=== PATIENT | female | born 1960 | race African-American/Black ===

== ENCOUNTER → 2017-01-14 | Outpatient (CLI) | payer OTHER ==
--- NOTE | 2017-01-14 14:23 | CR ---
EXAMINATION: Left foot HISTORY: Pain COMPARISON: 06/08/2016 TECHNIQUE: 2 views FINDINGS: There is no acute osseous abnormality, dislocation, or fracture identified. No mineralizat ion and joint spaces appear grossly preserved. Mild osteoarthritic changes are noted at the first MT P joint with mild oversight soft tissue swelling. Mild soft tissue swelling is noted along the later al aspect of the foot. Tiny calcaneal spurs noted. IMPRESSION: Mild degenerative changes without acute findings.
== END ==
LOC: MW.DI 09:12
DX: M79.672 Pain in left foot (principal)
CPT/HCPCS: 73620-26-LT; 73620-LT

== ENCOUNTER → 2017-01-18 | Outpatient (CLI) | payer OTHER ==
--- NOTE | 2017-01-18 17:17 | US ---
EXAMINATION: Transvaginal and transabdominal pelvic ultrasound HISTORY: Fibroid COMPARISON: None TECHNIQUE: Grayscale, color Doppler images obtained transvaginally and transabdominally. FINDINGS: The uterus measures 7 x 7.8 x 6.7 cm. There are several round heterogeneous masses noted w ithin the uterus measuring up to 4.2 cm consistent with uterine fibroids. Endometrial stripe thickne ss measures up to 8 mm. No free pelvic fluid identified. The ovaries are not identified. IMPRESSION: 1. Several uterine fibroids noted measuring up to 4.2 cm. 2. Endometrial stripe thickness measures 8 mm, mildly prominent for a postmenopausal state.
--- NOTE | 2017-01-18 17:20 | MY ---
EXAMINATION: Bilateral digital mammography utilizing CAD. HISTORY: Screening exam. Comparison is made to previous studies dated 01/14/2016, 03/11/2015. FINDINGS: Bilateral heterogeneously dense breast tissue. No suspicious calcifications, masses or a rchitectural distortions. No pathologic appearing lymph nodes, no abnormal skin thickening or nippl e inversion. CAD highlighted regions appear normal at this time. IMPRESSION: BI-RADS category I - negative mammogram. Continued screening according to ACR-ACS gu idelines suggested. THE FALSE-NEGATIVE RATE OF MAMMOGRAM IS APPROXIMATELY 10%. MANAGEMENT OF A PALPABLE ABNORMALITY MUST BE BASED UPON CLINICAL GROUNDS. SENSITIVITY FOR DETECTION OF ABNORMALITIES IN DENSE BREASTS IS LOW. NOTE: A letter will be sent to the patient regarding findings. [facility] -- CHIQUITA Dowd [phone] - FAX [phone]
== END ==
LOC: MW.MAM 13:31
PROVIDERS: ATTEND Nurse Practitioner Women's Health
DX: Z12.31 Encounter for screening mammogram for malignant neoplasm of breast (principal); M79.672 Pain in left foot; D25.9 Leiomyoma of uterus, unspecified
CPT/HCPCS: 73620; 76830; G0202

== ENCOUNTER → 2017-03-29 | Outpatient (CLI) | payer OTHER ==
[2017-03-29 10:34] LABS: CHLORIDE,CL 106 mmol/L (98-110); SODIUM,NA 141 mmol/L (136-146)
== END ==
LOC: MW.CHIM 09:25
PROVIDERS: ATTEND Internal Medicine
DX: D64.9 Anemia, unspecified (principal); I10 Essential (primary) hypertension; E78.00 Pure hypercholesterolemia, unspecified; E03.9 Hypothyroidism, unspecified
CPT/HCPCS: 36415; 80053; 80061; 83540; 84439; 84443; 85025

== ENCOUNTER 2017-10-08 19:32 | Emergency (ER) | payer OTHER ==
[2017-10-08] MEDS ORDERED: Ketorolac 30 MG/ML SDV IVPUSH ONE (20:02)
[2017-10-08] MEDS ORDERED: Sodium Chloride 0.9% 1,000 ML IV ONE (20:02)
--- NOTE | 2017-10-08 20:07 | EDM.PDOC ---
ED HPI GENERAL MEDICAL PROBLEM - General Chief Complaint: Headache Stated Complaint: PT HAS MIGRAINE Time Seen by Provider: 10/08/17 19:47 Source of Information: Reports: Patient History Limitations: Reports: No Limitations - History of Present Illness INITIAL COMMENTS - FREE TEXT/NARRATIVE: HISTORY AND PHYSICAL: History of present illness: Patient is a 57-year-old female who presents to the emergency room with complaints of a headache. She reports that she has had this pain on the top of her scalp and 3 days. She denies any recent head injury or trauma. Denies any photophobia or noise sensitivity. Dates she has a history of headaches, does not remember the last time she had one. Normally does not take any over-the- counter medications for these. Has not taken any medication at this time for this headache. Denies any ear pain or throat pain. Denies any chest pain, shortness of breath, fever or chills. Denies any abdominal pain, nausea, vomiting or diarrhea. Denies any changes or difficulty with bowel or bladder. * Visual acuity both eyes 20/20, left eye 20/25, right eye 20/20. Does not wear corrective lenses. Review of systems: As per history of present illness and below otherwise all systems reviewed and negative. Past medical history: As per history of present illness and as reviewed below otherwise noncontributory. Surgical history: As per history of present illness and as reviewed below otherwise noncontributory. Social history: No reported history of drug or alcohol abuse. Family history: As per history of present illness and as reviewed below otherwise noncontributory. Physical exam: Gen.: Well-developed and well-nourished 57-year-old -[place] female. Appears nontoxic. Alert and oriented. Appears in no acute distress. HEENT: Atraumatic, normocephalic, pupils reactive, negative for conjunctival pallor or scleral icterus, mucous membranes moist, throat clear, neck supple, nontender, trachea midline. Lungs: Clear to auscultation, breath sounds equal bilaterally, chest nontender. Heart: S1S2, regular, negative for clicks, rubs, or JVD. Abdomen: Soft, nondistended, nontender. Negative for masses or hepatosplenomegaly. Negative for costovertebral tenderness. Pelvis: Stable nontender. Genitourinary: Deferred. Rectal: Deferred. Extremities: Atraumatic, negative for cords or calf pain. Neurovascular unremarkable. Neuro: Awake, alert, oriented. Cranial nerves II through XII unremarkable. Cerebellum unremarkable. Motor and sensory unremarkable throughout. Exam nonfocal. We discussed the risks versus benefits of a head CT at this time. She decided she would like to try the IV fluid and Toradol and hold off on the head CT. 2039- patient states that the Toradol did not alleviate her head pain. At this time she is requesting that we do a head CT prior to her discharge. She declines any additional pain medication at this time. Diagnostics: Head CT Therapeutics: IV fluid, Toradol Impression: Headache Plan: 1. Your head CT was normal. Please take the rest of the day to rest in a quiet dark room. He may use Excedrin Migraine or Tylenol [id number] as needed. 2. As we discussed you should get a routine eye exam and establish care with a primary care provider for routine health maintenance. 3. Follow-up with the primary care provider in the next 1-2 days. Return to the ED as needed and as discussed. Definitive disposition and diagnosis as appropriate pending reevaluation and review of above. headach Pain Score (Numeric/FACES): 4 - Related Data Allergies Allergy/AdvReac Type Severity Reaction Status Date / Time No Known Allergies Allergy Verified 10/08/17 19:46 Home Meds: Home Meds Verapamil HCl [Verapamil ER] 180 mg PO DAILY 01/07/16 [History] atorvaSTATin [Lipitor] 40 mg PO BEDTIME 01/07/16 [History] Lisinopril 10 mg PO DAILY 09/22/16 [History] Albuterol [Ventolin HFA] 2 puff INH ASDIRECTED PRN 10/08/17 [History] Clopidogrel [Plavix] 75 mg PO DAILY 10/08/17 [History] Umeclidinium Brm/Vilanterol Tr [Anoro Ellipta 62.5-25 MCG] 1 puff INH DAILY [History] Past Medical History HEENT History: Reports: Allergic Rhinitis, Impaired Vision Other HEENT History: uses reading glasses, has upper and lower dentures Cardiovascular History: Reports: CAD, High Cholesterol, Hypertension Respiratory History: Reports: Asthma, COPD Gastrointestinal History: Reports: Chronic Constipation Genitourinary History: Reports: None 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: Musculoskeletal History: Reports: Back Pain, Chronic Neurological History: Reports: Migraines, TIA Other Neuro History: last TIA in 2003 Psychiatric History: Reports: Anxiety, Panic Attack Other Psychiatric History: not on meds Endocrine/Metabolic History: Reports: Hypothyroidism Hematologic History: Reports: Anemia Other Hematologic History: Hepatitis B Immunologic History: Reports: None Oncologic (Cancer) History: Reports: None Dermatologic History: Reports: Eczema Other Dermatologic History: behind knees and both thighs - Infectious Disease History Infectious Disease History: Reports: Chicken Pox, Mumps - Past Surgical History Head Surgeries/Procedures: Reports: None HEENT Surgical History: Reports: None Cardiovascular Surgical History: Reports: None Respiratory Surgical History: Reports: None GI Surgical History: Reports: None Female Surgical History: Reports: Section Endocrine Surgical History: Reports: Parathyroidectomy, Other (See Below) Neurological Surgical History: Reports: None Musculoskeletal Surgical History: Reports: None Oncologic Surgical History: Reports: None Dermatological Surgical History: Reports: None Social & Family History - Family History Family Medical History: Noncontributory - Tobacco Use Smoking Status *Q: Never Smoker Second Hand Smoke Exposure: No - Caffeine Use Caffeine Use: Reports: Coffee - Alcohol Use Days Per Week of Alcohol Use: 3 Number of Drinks Per Day: 2 Total Drinks Per Week: 6 - Recreational Drug Use Recreational Drug Use: No ED ROS GENERAL - Review of Systems Review Of Systems: See Below Constitutional: Denies: Fever, Chills, Weakness HEENT: Denies: Ear Pain, Sinus Problem, Throat Pain Cardiovascular: Denies: Chest Pain, Lightheadedness, Syncope Endocrine: Denies: Fatigue GI/Abdominal: Denies: Abdominal Pain, Diarrhea, Nausea, Vomiting Musculoskeletal: Denies: Muscle Pain Neurological: Denies: Confusion, Dizziness, Numbness, Tingling, Weakness, Gait Disturbance Psychiatric: Denies: Anxiety - Physical Exam Exam: See Below (See dictation) Course - Vital Signs Last Recorded V/S: Last Vital Signs Temp 36.1 C 10/08/17 19:43 Pulse 72 10/08/17 21:15 Resp 18 10/08/17 21:15 BP 116/85 10/08/17 21:15 Pulse Ox 97 10/08/17 21:15 - Orders/Labs/Meds Orders: Active Orders 24 hr Category Date Time Status Head wo Cont [CT] Stat Exams 10/08/17 20:44 Taken Meds: Medications Discontinued Medications Generic Name Dose Route Start Last Admin Trade Name Duane PRN Reason Stop Dose Admin Sodium Chloride 1,000 mls @ 999 mls/hr 10/08/17 20:02 10/08/17 20:15 Normal Saline IV 10/08/17 21:02 999 mls/hr STAT ONE Administration Ketorolac Tromethamine 30 mg 10/08/17 20:02 10/08/17 20:19 Toradol IVPUSH 10/08/17 20:03 30 mg ONETIME ONE Administration Departure - Departure Time of Disposition: 21:22 Disposition: Home, Self-Care 01 Clinical Impression: Headache Qualifiers: Headache type: unspecified Headache chronicity pattern: episodic headache Intractability: not intractable Qualified Code(s): R51 - Headache - Discharge Information Referrals: PCP,None [Primary Care Provider] - Forms: ED Department Discharge Additional Instructions: My general discharge The following information is given to patients seen in the emergency department who are being discharged to home. This information is to outline your options for follow-up care. We provide all patients seen in our emergency department with a follow-up referral. The need for follow-up, as well as the timing and circumstances, are variable depending upon the specifics of your emergency department visit. If you don't have a primary care physician on staff, we will provide you with a referral. We always advise you to contact your personal physician following an emergency department visit to inform them of the circumstance of the visit and for follow-up with them and/or the need for any referrals to a consulting specialist. The emergency department will also refer you to a specialist when appropriate. This referral assures that you have the opportunity for follow-up care with a specialist. All of these measure are taken in an effort to provide you with optimal care, which includes your follow-up. Under all circumstances we always encourage you to contact your private physician who remains a resource for coordinating your care. When calling for follow-up care, please make the office aware that this follow-up is from your recent emergency room visit. If for any reason you are refused follow-up, please contact the [facility] Emergency Department at and asked to speak to the emergency department charge nurse. [facility] [address] [place], [place] [address], [place] [address] [facility] [address] [place] [address] was normal. Please take the rest of the day to rest in a quiet dark room. He may use Excedrin Migraine or Tylenol [id number] as needed. 2. As we discussed you should get a routine eye exam and establish care with a primary care provider for routine health maintenance. 3. Follow-up with the primary care provider in the next 1-2 days. Return to the ED as needed and as discussed. - My Orders Last 24 Hours: My Active Orders 10/08/17 20:44 Head wo Cont [CT] Stat - Assessment/Plan Last 24 Hours: My Active Orders 10/08/17 20:44 Head wo Cont [CT] Stat
[2017-10-08 22:39] VITALS: BP 118/74
--- NOTE | 2017-10-10 15:10 | CT ---
EXAM DATE: 10/08/17 PATIENT'S AGE: 57 Patient: MARIE GOMEZ Facility: [place], [place] Site . Site : 1960 Study: CT Head [id number] 9:05:48 PM Ordering Physician: Doctor Scott Final Report: INDICATION: Headache. Technique: CT head without IV contrast. Comparison: CT head 09/22/2016. Findings: Small amounts of fluid and opacification of inferior left mastoid air cells consistent with inflammation or edema. Minimal cerebral atrophy. No intracranial hemorrhage, edema, or mass effect. Remainder negative. Impression: 1. No acute intracranial disease. 2. Fluid in opacification of inferior left mastoid air cells unchanged and likely related to inflammation or edema which may be chronic or ongoing. Please note that all CT scans at this facility use dose modulation, iterative reconstruction, and/or weight-based dosing when appropriate to reduce radiation dose to as low as reasonably achievable. Dictated by Live Rosas MD @ Oct 08 2017 9:14PM (Electronic Signature) Report Signed by Proxy. MTDD
== END 2017-10-08 21:50 | disposition home or self-care (01) ==
LOC: MW.ED 19:32
DX: R51 Headache (principal); I10 Essential (primary) hypertension; Z79.899 Other long term (current) drug therapy
CPT/HCPCS: 70450; 96361; 96374; 99284; J1885; J7040; 99282

== ENCOUNTER 2019-06-27 07:51 | Emergency (ER) | payer OTHER ==
--- NOTE | 2019-06-27 08:16 | EDM.PDOC ---
ED HPI GENERAL MEDICAL PROBLEM - General Chief Complaint: Back Pain or Injury Stated Complaint: BACK PAIN Time Seen by Provider: 06/27/19 08:13 Source of Information: Reports: Patient History Limitations: Reports: No Limitations - History of Present Illness INITIAL COMMENTS - FREE TEXT/NARRATIVE: History of present illness: []Patient has had diffuse low back pain for the last 2 days. She denies any trauma or urinary discomfort, incontinence, numbness or tingling, radiation of pain, fevers, vomiting or diarrhea. Review of systems: As per history of present illness and below otherwise all systems reviewed and negative. Past medical history: As per history of present illness and as reviewed below otherwise noncontributory. Surgical history: As per history of present illness and as reviewed below otherwise noncontributory. Social history: No reported history of drug or alcohol abuse. Family history: As per history of present illness and as reviewed below otherwise noncontributory. Physical exam: General: Well developed, well nourished in NAD HEENT: Atraumatic, normocephalic, pupils reactive, negative for conjunctival pallor or scleral icterus, mucous membranes moist, throat clear, neck supple, nontender, trachea midline. Lungs: Clear to auscultation, breath sounds equal bilaterally, chest nontender. Heart: S1S2, regular, negative for clicks, rubs, or JVD. Abdomen: NABS, Soft, nondistended, nontender. Negative for masses or hepatosplenomegaly. Negative for costovertebral tenderness. Low back tenderness over muscle there is no vertebral point tenderness is noted. Pelvis: Stable nontender. Genitourinary: Deferred. Rectal: Deferred. Extremities: Atraumatic, negative for cords or calf pain. Neurovascular unremarkable. Neuro: Awake, alert, oriented. Cranial nerves II through XII unremarkable. Cerebellum unremarkable. Motor and sensory unremarkable throughout. Exam nonfocal. Straight leg raise negative, raises great toes Skin:warm and dry Diagnostics: None Therapeutics: None ED Course: Stable Impression: Low back pain Prescriptions: Tramadol, Flexeril Plan: Take meds as directed, follow up with your primary care physician, return to ER if symptoms worsen or change. Definitive disposition and diagnosis as appropriate pending reevaluation and review of above. Lower Back Pain Score (Numeric/FACES): 10 - Related Data Allergies Allergy/AdvReac Type Severity Reaction Status Date / Time No Known Allergies Allergy Verified 06/27/19 07:59 Home Meds: Home Meds Verapamil HCl [Verapamil ER] 180 mg PO DAILY 01/07/16 [History] atorvaSTATin [Lipitor] 40 mg PO BEDTIME 01/07/16 [History] Lisinopril 10 mg PO DAILY 09/22/16 [History] Albuterol [Ventolin HFA] 2 puff INH ASDIRECTED PRN 10/08/17 [History] Clopidogrel [Plavix] 75 mg PO DAILY 10/08/17 [History] Umeclidinium Brm/Vilanterol Tr [Anoro Ellipta 62.5-25 MCG] 1 puff INH DAILY [History] Cyclobenzaprine [Flexeril] 10 mg PO BID PRN #12 tab 06/27/19 [Rx] traMADol HCl [Tramadol HCl] 50 mg PO Q6H PRN #16 tablet 06/27/19 [Rx] Past Medical History HEENT History: Reports: Allergic Rhinitis, Impaired Vision Other HEENT History: uses reading glasses, has upper and lower dentures Cardiovascular History: Reports: CAD, High Cholesterol, Hypertension Respiratory History: Reports: Asthma, COPD Gastrointestinal History: Reports: Chronic Constipation Genitourinary History: Reports: None 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: Musculoskeletal History: Reports: Back Pain, Chronic Neurological History: Reports: Migraines, TIA Other Neuro History: last TIA in 2003 Psychiatric History: Reports: Anxiety, Panic Attack Other Psychiatric History: not on meds Endocrine/Metabolic History: Reports: Hypothyroidism Hematologic History: Reports: Anemia Other Hematologic History: Hepatitis B Immunologic History: Reports: None Oncologic (Cancer) History: Reports: None Dermatologic History: Reports: Eczema Other Dermatologic History: behind knees and both thighs - Infectious Disease History Infectious Disease History: Reports: Chicken Pox, Hepatitis B - Past Surgical History Head Surgeries/Procedures: Reports: None HEENT Surgical History: Reports: None Cardiovascular Surgical History: Reports: None Respiratory Surgical History: Reports: None GI Surgical History: Reports: None Female Surgical History: Reports: Section Endocrine Surgical History: Reports: Parathyroidectomy, Other (See Below) Neurological Surgical History: Reports: None Musculoskeletal Surgical History: Reports: None Oncologic Surgical History: Reports: None Dermatological Surgical History: Reports: None Social & Family History - Family History Family Medical History: Noncontributory - Tobacco Use Smoking Status *Q: Former Smoker Used Tobacco, but Quit: Yes Month/Year Tobacco Last Used: 2003 - Caffeine Use Caffeine Use: Reports: Coffee - Recreational Drug Use Recreational Drug Use: No ED ROS GENERAL - Review of Systems Review Of Systems: See Below ED EXAM,LOWER BACK PAIN/INJURY - Physical Exam Exam: See Below Course - Vital Signs Last Recorded V/S: Last Vital Signs Temp 96.8 F 06/27/19 07:57 Pulse 68 06/27/19 07:57 Resp 16 06/27/19 07:57 BP 128/87 06/27/19 07:57 Pulse Ox 98 06/27/19 07:57 Departure - Departure Time of Disposition: 08:15 Disposition: Home, Self-Care 01 Condition: Good Clinical Impression: Low back pain Qualifiers: Chronicity: acute Back pain laterality: bilateral Sciatica presence: without sciatica Qualified Code(s): M54.5 - Low back pain - Discharge Information *PRESCRIPTION DRUG MONITORING PROGRAM REVIEWED*: No *COPY OF PRESCRIPTION DRUG MONITORING REPORT IN PATIENT ESTRELLITA: No Prescriptions: Cyclobenzaprine [Flexeril] 10 mg PO BID PRN #12 tab PRN Reason: Pain traMADol HCl [Tramadol HCl] 50 mg PO Q6H PRN #16 tablet PRN Reason: Pain Referrals: Mario Cortez MD [Primary Care Provider] - Additional Instructions: The following information is given to patients seen in the emergency department who are being discharged to home. This information is to outline your options for follow-up care. We provide all patients seen in our emergency department with a follow-up referral. The need for follow-up, as well as the timing and circumstances, are variable depending upon the specifics of your emergency department visit. If you don't have a primary care physician on staff, we will provide you with a referral. We always advise you to contact your personal physician following an emergency department visit to inform them of the circumstance of the visit and for follow-up with them and/or the need for any referrals to a consulting specialist. The emergency department will also refer you to a specialist when appropriate. This referral assures that you have the opportunity for follow-up care with a specialist. All of these measure are taken in an effort to provide you with optimal care, which includes your follow-up. Under all circumstances we always encourage you to contact your private physician who remains a resource for coordinating your care. When calling for follow-up care, please make the office aware that this follow-up is from your recent emergency room visit. If for any reason you are refused follow-up, please contact the [facility] Emergency Department at and asked to speak to the emergency department charge nurse. Take meds as directed, follow up with your primary care physician, return to ER if symptoms worsen or change. [facility] [address] [place] [id number]
[2019-06-27 08:20] VITALS: BP 129/68; PULSE 69
== END 2019-06-27 08:23 | disposition home or self-care (01) ==
LOC: MW.ED 07:51
DX: M54.5 Low back pain (principal); I10 Essential (primary) hypertension; I25.10 Atherosclerotic heart disease of native coronary artery without angina pectoris; J44.9 Chronic obstructive pulmonary disease, unspecified; Z86.73 Personal history of transient ischemic attack (TIA), and cerebral infarction without residual deficits; Z87.891 Personal history of nicotine dependence
CPT/HCPCS: 99282; 99283

== ENCOUNTER 2019-07-21 11:39 | Emergency (ER) | payer OTHER ==
[2019-07-21] MEDS ORDERED: Sodium Chloride 0.9% 2.5 ML Syringe FLUSH PRN (11:42)
[2019-07-21] MEDS ORDERED: Sodium Chloride 0.9% 10 ML Syringe FLUSH PRN (11:42)
[2019-07-21] MEDS ORDERED: Sodium Chloride 0.9% 1,000 ML IV ONE (11:42)
--- NOTE | 2019-07-21 11:45 | EDM.PDOC ---
ED HPI GENERAL MEDICAL PROBLEM - General Stated Complaint: DIZZINESS Time Seen by Provider: 07/21/19 11:40 Source of Information: Reports: Patient History Limitations: Reports: No Limitations - History of Present Illness INITIAL COMMENTS - FREE TEXT/NARRATIVE: HISTORY AND PHYSICAL: History of present illness: Patient is a 58-year-old female who presents to the emergency room with complaints of dizziness 1 week. She states for the last one week she has several episodes per day where she feels the room is spinning. Reports that nothing brings these episodes on although she does find relief with sitting and not moving her head. She is able to cause dizziness with rapid head movement. Denies any recent head injury, trauma or falls. Patient denies any fever, chills , headache, change in vision, syncope or near syncope. Denies any chest pain, back pain, shortness of breath or cough. Denies any abdominal pain, nausea, vomiting, diarrhea, constipation or dysuria. Has not noted any blood in urine or stool. Patient has been eating and drinking appropriately. Review of systems: As per history of present illness and below otherwise all systems reviewed and negative. Past medical history: As per history of present illness and as reviewed below otherwise noncontributory. Surgical history: As per history of present illness and as reviewed below otherwise noncontributory. Social history: See social history for further information Family history: As per history of present illness and as reviewed below otherwise noncontributory. Physical exam: General: Well-developed and well-nourished 58-year-old female. Alert and oriented. Nontoxic appearing and in no acute distress. HEENT: Atraumatic, normocephalic, pupils equal and reactive bilaterally, negative for conjunctival pallor or scleral icterus, mucous membranes moist, TMs normal bilaterally, throat clear, neck supple, nontender, trachea midline. No drooling or trismus noted. No meningeal signs. No hot potato voice noted. Lungs: Clear to auscultation, breath sounds equal bilaterally, chest nontender. Heart: S1S2, regular rate and rhythm without overt murmur Abdomen: Soft, nondistended, nontender. Negative for masses or hepatosplenomegaly. Negative for costovertebral tenderness. Skin: Intact, warm, dry. No lesions or rashes noted. Extremities: Atraumatic, moves all extremities per self without difficulty or deficits, negative for cords or calf pain. Neurovascular unremarkable. Neuro: Awake, alert, oriented. Cranial nerves II through XII unremarkable. Cerebellum unremarkable. Motor and sensory unremarkable throughout. Exam nonfocal. Notes: Negative Head CT. Lab work is unremarkable. Diagnostics were shared and discussed with patient. She states she does feel improvement and would like to be discharged. We discussed using [id number] meclizine and I will prescribe 3 patches of the scopolamine if the meclizine does not help. We also discussed physical therapy as a modality to help improve symptoms. Supportive care measures were reviewed and discussed. Voices understanding and is agreeable to plan of care. Denies any further questions or concerns at this time. Diagnostics: CBC, CMP, Troponin, EKG, Chest Xray, Orthostatic Vital Signs, UA, Head CT Therapeutics: Normal Saline, Meclizine Prescription: Sopalamine Patch (#3) Impression: Vertigo Plan: 1. Increase your oral fluids. Change positions slowly (from sitting to standing) 2. You can use [id number] meclizine as we discussed. If that medication does not work have prescribed scopolamine patches. This medication can be applied behind the ear and be changed every 72 hours (3 days). He also have the option of following up with physical therapy as they do perform some exercises/ maneuvers that may help with the dizziness. 3. Please follow-up with your primary care provider as we discussed. Return to the ED as needed and as discussed. Definitive disposition and diagnosis as appropriate pending reevaluation and review of above. - Related Data Allergies Allergy/AdvReac Type Severity Reaction Status Date / Time No Known Allergies Allergy Verified 06/27/19 07:59 Home Meds: Home Meds Verapamil HCl [Verapamil ER] 180 mg PO DAILY 01/07/16 [History] atorvaSTATin [Lipitor] 40 mg PO BEDTIME 01/07/16 [History] Lisinopril 10 mg PO DAILY 09/22/16 [History] Albuterol [Ventolin HFA] 2 puff INH ASDIRECTED PRN 10/08/17 [History] Clopidogrel [Plavix] 75 mg PO DAILY 10/08/17 [History] Umeclidinium Brm/Vilanterol Tr [Anoro Ellipta 62.5-25 MCG] 1 puff INH DAILY [History] Cyclobenzaprine [Flexeril] 10 mg PO BID PRN #12 tab 06/27/19 [Rx] traMADol HCl [Tramadol HCl] 50 mg PO Q6H PRN #16 tablet 06/27/19 [Rx] Scopolamine [Transderm-Scop] 1 each TD ASDIRECTED PRN #3 patch 07/21/19 [Rx] Past Medical History HEENT History: Reports: Allergic Rhinitis, Impaired Vision Other HEENT History: uses reading glasses, has upper and lower dentures Cardiovascular History: Reports: CAD, High Cholesterol, Hypertension Respiratory History: Reports: Asthma, COPD Gastrointestinal History: Reports: Chronic Constipation Genitourinary History: Reports: None [employer] SUPER[employer]OR History: Reports: Musculoskeletal History: Reports: Back Pain, Chronic Neurological History: Reports: Migraines, TIA Other Neuro History: last TIA in 2003 Psychiatric History: Reports: Anxiety, Panic Attack Other Psychiatric History: not on meds Endocrine/Metabolic History: Reports: Hypothyroidism Hematologic History: Reports: Anemia Other Hematologic History: Hepatitis B Immunologic History: Reports: None Oncologic (Cancer) History: Reports: None Dermatologic History: Reports: Eczema Other Dermatologic History: behind knees and both thighs - Infectious Disease History Infectious Disease History: Reports: Chicken Pox, Hepatitis B - Past Surgical History Head Surgeries/Procedures: Reports: None HEENT Surgical History: Reports: None Cardiovascular Surgical History: Reports: None Respiratory Surgical History: Reports: None GI Surgical History: Reports: None Female Surgical History: Reports: Section Endocrine Surgical History: Reports: Parathyroidectomy, Other (See Below) Neurological Surgical History: Reports: None Musculoskeletal Surgical History: Reports: None Oncologic Surgical History: Reports: None Dermatological Surgical History: Reports: None Social & Family History - Family History Family Medical History: Noncontributory - Caffeine Use Caffeine Use: Reports: Coffee ED ROS GENERAL - Review of Systems Review Of Systems: ROS reveals no pertinent complaints other than HPI. ED EXAM, GENERAL - Physical Exam Exam: See Below (See dictation) Course - Vital Signs Last Recorded V/S: Last Vital Signs Temp 98.2 F 07/21/19 11:49 Pulse 69 07/21/19 12:55 Resp 18 07/21/19 12:55 BP 164/99 H 07/21/19 12:55 Pulse Ox 99 07/21/19 12:55 - Orders/Labs/Meds Orders: Active Orders 24 hr Category Date Time Status EKG Documentation Completion [RC] STAT Care 07/21/19 11:42 Active Saline Lock Insert [OM.PC] Stat Oth 07/21/19 11:42 Ordered Labs: Laboratory Tests 07/21/19 07/21/19 07/21/19 Range/Units 11:52 11:52 12:20 WBC 3.35 L (4.0-11.0) K/uL RBC 4.85 (4.30-5.90) M/uL Hgb 12.9 (12.0-16.0) g/dL Hct 39.6 (36.0-46.0) % MCV 81.6 (80.0-98.0) fL MCH 26.6 L (27.0-32.0) pg MCHC 32.6 (31.0-37.0) g/dL RDW Std Deviation 38.6 (28.0-62.0) fl RDW Coeff of [place] 13 (11.0-15.0) % Plt Count 235 (150-400) K/uL MPV 9.00 (7.40-12.00) fL Neut % (Auto) 37.5 L (48.0-80.0) % Lymph % (Auto) 46.3 H (16.0-40.0) % [place] % (Auto) 9.6 (0.0-15.0) % Eos % (Auto) 6.0 (0.0-7.0) % Baso % (Auto) 0.6 (0.0-1.5) % Neut # (Auto) 1.3 L (1.4-5.7) K/uL Lymph # (Auto) 1.6 (0.6-2.4) K/uL [place] # (Auto) 0.3 (0.0-0.8) K/uL Eos # (Auto) 0.2 (0.0-0.7) K/uL Baso # (Auto) 0.0 (0.0-0.1) K/uL Nucleated RBC % 0.0 /100WBC Nucleated RBCs # 0 K/uL Sodium 139 (136-145) mmol/L Potassium 4.1 (3.5-5.1) mmol/L Chloride 103 (98-107) mmol/L Carbon Dioxide 26.5 (21.0-32.0) mmol/L BUN 28 H (7.0-18.0) mg/dL Creatinine 1.2 H (0.6-1.0) mg/dL Est Cr Clr Drug Dosing 44.13 mL/min Estimated GFR (MDRD) 55.9 ml/min Glucose 96 (74-106) mg/dL Calcium 9.4 (8.5-10.1) mg/dL Total Bilirubin 0.4 (0.2-1.0) mg/dL AST 20 (15-37) IU/L ALT 26 (14-63) IU/L Alkaline Phosphatase 71 (46-116) U/L Troponin I < 0.050 (0.000-0.056) ng/mL Total Protein 7.5 (6.4-8.2) g/dL Albumin 3.7 (3.4-5.0) g/dL Globulin 3.8 (2.6-4.0) g/dL Albumin/Globulin Ratio 1.0 (0.9-1.6) Urine Color YELLOW Urine Appearance CLEAR Urine pH 7.0 (5.0-8.0) Ur Specific [place] 1.015 (1.001-1.035) Urine Protein NEGATIVE (NEGATIVE) mg/dL Urine Glucose (UA) NEGATIVE (NEGATIVE) mg/dL Urine Ketones NEGATIVE (NEGATIVE) mg/dL Urine Occult Blood NEGATIVE (NEGATIVE) Urine Nitrite NEGATIVE (NEGATIVE) Urine Bilirubin NEGATIVE (NEGATIVE) Urine Urobilinogen 0.2 (<2.0) EU/dL Ur Leukocyte Esterase NEGATIVE (NEGATIVE) Meds: Medications Discontinued Medications Generic Name Dose Route Start Last Admin Trade Name Freq PRN Reason Stop Dose Admin Sodium Chloride 1,000 mls @ 999 mls/hr 07/21/19 11:42 07/21/19 12:01 Normal Saline IV 07/21/19 12:42 999 mls/hr STAT ONE Administration Meclizine HCl 25 mg 07/21/19 12:27 07/21/19 12:40 Antivert PO 07/21/19 12:28 25 mg ONETIME ONE Administration Sodium Chloride 10 ml 07/21/19 11:42 Saline Flush FLUSH ASDIRECTED PRN Keep Vein Open Sodium Chloride 2.5 ml 07/21/19 11:42 Saline Flush FLUSH ASDIRECTED PRN Keep Vein Open Departure - Departure Time of Disposition: 12:47 Disposition: Home, Self-Care 01 Clinical Impression: Vertigo - Discharge Information Prescriptions: Scopolamine [Transderm-Scop] 1 each TD ASDIRECTED PRN #3 patch PRN Reason: Other Instructions: Vertigo, [id number] Referrals: Mario Cortez MD [Primary Care Provider] - Forms: ED Department Discharge Additional Instructions: The following information is given to patients seen in the emergency department who are being discharged to home. This information is to outline your options for follow-up care. We provide all patients seen in our emergency department with a follow-up referral. The need for follow-up, as well as the timing and circumstances, are variable depending upon the specifics of your emergency department visit. If you don't have a primary care physician on staff, we will provide you with a referral. We always advise you to contact your personal physician following an emergency department visit to inform them of the circumstance of the visit and for follow-up with them and/or the need for any referrals to a consulting specialist. The emergency department will also refer you to a specialist when appropriate. This referral assures that you have the opportunity for follow-up care with a specialist. All of these measure are taken in an effort to provide you with optimal care, which includes your follow-up. Under all circumstances we always encourage you to contact your private physician who remains a resource for coordinating your care. When calling for follow-up care, please make the office aware that this follow-up is from your recent emergency room visit. If for any reason you are refused follow-up, please contact the [facility] Emergency Department at and asked to speak to the emergency department charge nurse. [facility] [address] [place] [id number] [address] [address] 1. Increase your oral fluids. Change positions slowly (from sitting to standing) 2. You can use [id number] meclizine as we discussed. If that medication does not work have prescribed scopolamine patches. This medication can be applied behind the ear and be changed every 72 hours (3 days). He also have the option of following up with physical therapy as they do perform some exercises/ maneuvers that may help with the dizziness. 3. Please follow-up with your primary care provider as we discussed. Return to the ED as needed and as discussed. - My Orders Last 24 Hours: My Active Orders 07/21/19 11:42 EKG Documentation Completion [RC] STAT Saline Lock Insert [OM.PC] Stat - Assessment/Plan Last 24 Hours: My Active Orders 07/21/19 11:42 EKG Documentation Completion [RC] STAT Saline Lock Insert [OM.PC] Stat
[2019-07-21 12:20] LABS: CHLORIDE,CL 103 mmol/L (98-107); SODIUM,NA 139 mmol/L (136-145)
[2019-07-21] MEDS ORDERED: Meclizine 25 MG Tab PO ONE (12:27)
--- NOTE | 2019-07-21 12:28 | CT ---
INDICATION: Dizziness TECHNIQUE: Non-contrast CT of the head is submitted. Compared to prior study from October 08, 2017 FINDINGS: The ventricles, sulci and gyri are of normal size, shape and contour. Midline structures are centrally located. No convincing evidence of intra- or extra-axial fluid collections. IMPRESSION: 1. Stable no radiographic evidence of acute intracranial abnormalities. Dictated by Frank Gutiérrez MD @ 07/21/2019 12:27:47 PM Please note that all CT scans at this facility use dose modulation, iterative reconstruction, and/or weight-based dosing when appropriate to reduce radiation dose to as low as reasonably achievable. Dictated by: Frank Gutiérrez MD @ 07/21/2019 12:27:54 (Electronically Signed)
--- NOTE | 2019-07-21 12:39 | CR ---
INDICATION: Chest pain COMPARISON: 02/28/2018. FINDINGS: Single portable AP view of the chest demonstrates adequate inflation of the lungs. Possible mild bibasilar atelectasis. No focal airspace consolidation, pneumothorax or effusion. Cardiomediastinal silhouette is unremarkable for an AP view. No acute osseous findings identified. - IMPRESSION: Negative AP view of the chest. Dictated by Antelmo Penny MD @ 07/21/2019 12:38:19 PM Dictated by: Antelmo Penny MD @ 07/21/2019 12:38:24 (Electronically Signed)
[2019-07-21 13:21] VITALS: BP 164/99
== END 2019-07-21 12:55 | disposition home or self-care (01) ==
LOC: MW.ED 11:39
DX: R42 Dizziness and giddiness (principal); I10 Essential (primary) hypertension; E78.00 Pure hypercholesterolemia, unspecified; I25.10 Atherosclerotic heart disease of native coronary artery without angina pectoris; F41.9 Anxiety disorder, unspecified; E03.9 Hypothyroidism, unspecified; Z79.899 Other long term (current) drug therapy
CPT/HCPCS: 36415; 70450; 71045; 80053; 81003; 84484; 85025; 93005; 96360; 99284; A9270; J7040

== ENCOUNTER 2021-03-08 20:40 | Emergency (ER) | payer OTHER ==
[2021-03-08] MEDS ORDERED: Azithromycin 250 MG Tab PO ONE (21:03)
[2021-03-08] MEDS ORDERED: Ondansetron 4 MG Tab.DIS PO ONE (21:03)
--- NOTE | 2021-03-08 21:09 | EDM.PDOC ---
ED HPI GENERAL MEDICAL PROBLEM - General Chief Complaint: ENT Problem Stated Complaint: SHARP PAINS IN HEAD AND EARS Time Seen by Provider: 03/08/21 20:47 - History of Present Illness INITIAL COMMENTS - FREE TEXT/NARRATIVE: HISTORY AND PHYSICAL: History of present illness: This is a 60-year-old female with a history significant for hypokalemia, carotid endarterectomy, on Plavix, who presents ER today complaining of right ear pain x2 to 3 days with pain rating to her scalp. Patient denies any recent fevers, shakes, chills, nausea, vomiting, diarrhea, dysuria, frequency, urgency. Patient denies any drainage from her ear. Patient denies any sore throat. Patient denies any dental pain. Patient denies any visual changes. Patient has any weakness to her upper or lower extremities. Patient reports that she had similar pains in the past and usually resolve with antibiotics. Review of systems: As per history of present illness and below otherwise all systems reviewed and negative. Past medical history: As per history of present illness and as reviewed below otherwise noncontributory. Surgical history: As per history of present illness and as reviewed below otherwise noncontributory. Social history: No reported history of drug or alcohol abuse. Family history: As per history of present illness and as reviewed below otherwise noncontributory. Physical exam: This patient was seen and evaluated during the 2019 SARS-CoV-2 novel coronavirus pandemic period. Community viral transmission is ongoing at time of this encounter and the emergency department is operating under pandemic response procedures. Constitutional: Patient is oriented to person, place, and time. Appears well- developed and well-nourished. No distress. HEENT: Moist mucous membranes Head: Normocephalic and atraumatic Eyes: Right eye exhibits no discharge. Left eye exhibits no discharge. No scleral icterus Neck: Normal range of motion. No tracheal deviation present. Cardiovascular: Normal rate and regular rhythm. Pulmonary: Effort normal, no respiratory distress. Abdominal: No distention Musculoskeletal: Normal range of motion Neurologic: Alert and oriented to person, place and time. Skin: [place], warm and dry. Psychiatric: Normal mood and affect. Behavior is normal. Judgment and thought content normal. Nursing note and vital signs have been reviewed Patient's ER physical exam is significant for swelling and erythema to the right dependent membrane. No perforation no drainage. Patient has no posterior auricular lymphadenopathy. neck supple, no nuchal rigidity, no photophobia, no Kernig's sign or Brudzinski sign, patient does not present with signs or symptoms of be consistent with meningitis. Oropharynx is clear without any exudates or erythema. Assessment and plan: This is a 60-year-old female who presents ER today complaining of pain to her right ear. Patient's exam is consistent with a right otitis media. Patient will get started on Zithromax and Zofran. Patient reports that she gets nauseous with antibiotics and she is currently been diagnosed with hypokalemia secondary to decreased p.o. intake. Patient reports that she has been able to drink plenty of fluids in the recent past and has not had any further issues with dehydration. Reassessment at the time of disposition demonstrates that the patient is in no acute distress. The patient has remained stable throughout the entire ED visit and is without objective evidence for acute process requiring urgent intervention or hospitalization. The patient is stable for discharge, counseling is provided as documented above, discussed symptomatic treatment and specific conditions for return. I have spoken with the patient/caregiver and discussed todays findings, in addition to providing specific details for the plan of care. Questions are answered and there is agreement with the plan. Definitive disposition and diagnosis as appropriate pending reevaluation and review of above. - Related Data Allergies Allergy/AdvReac Type Severity Reaction Status Date / Time No Known Allergies Allergy Verified 06/27/19 07:59 Home Meds: Home Meds Verapamil HCl [Verapamil ER] 180 mg PO DAILY 01/07/16 [History] atorvaSTATin [Lipitor] 40 mg PO BEDTIME 01/07/16 [History] Lisinopril 10 mg PO DAILY 09/22/16 [History] Albuterol [Ventolin HFA] 2 puff INH ASDIRECTED PRN 10/08/17 [History] Clopidogrel [Plavix] 75 mg PO DAILY 10/08/17 [History] Umeclidinium Brm/Vilanterol Tr [Anoro Ellipta 62.5-25 MCG] 1 puff INH DAILY 10/08/17 [History] Cyclobenzaprine [Flexeril] 10 mg PO BID PRN #12 tab 06/27/19 [Rx] traMADol HCl [Tramadol HCl] 50 mg PO Q6H PRN #16 tablet 06/27/19 [Rx] Scopolamine [Transderm-Scop] 1 each TD ASDIRECTED PRN #3 patch 07/21/19 [Rx] Azithromycin [Zithromax] 250 mg PO DAILY #4 tablet 03/08/21 [Rx] Ondansetron [Zofran ODT] 4 mg PO Q6H PRN #12 tab.dis 03/08/21 [Rx] Past Medical History HEENT History: Reports: Allergic Rhinitis, Impaired Vision Other HEENT History: uses reading glasses, has upper and lower dentures Cardiovascular History: Reports: CAD, High Cholesterol, Hypertension Respiratory History: Reports: Asthma, COPD Gastrointestinal History: Reports: Chronic Constipation Genitourinary History: Reports: 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: Musculoskeletal History: Reports: Back Pain, Chronic Neurological History: Reports: Migraines, TIA Other Neuro History: last TIA in 2003 Psychiatric History: Reports: Anxiety, Panic Attack Other Psychiatric History: not on meds Endocrine/Metabolic History: Reports: Hypothyroidism Hematologic History: Reports: Anemia Other Hematologic History: Hepatitis B Immunologic History: Reports: None Oncologic (Cancer) History: Reports: None Dermatologic History: Reports: Eczema Other Dermatologic History: behind knees and both thighs - Infectious Disease History Infectious Disease History: Reports: Chicken Pox, Hepatitis B - Past Surgical History Head Surgeries/Procedures: Reports: None HEENT Surgical History: Reports: None Cardiovascular Surgical History: Reports: None Respiratory Surgical History: Reports: None GI Surgical History: Reports: None Female Surgical History: Reports: Section Endocrine Surgical History: Reports: Parathyroidectomy, Other (See Below) Neurological Surgical History: Reports: None Musculoskeletal Surgical History: Reports: None Oncologic Surgical History: Reports: None Dermatological Surgical History: Reports: None Social & Family History - Family History Family Medical History: No Pertinent Family History - Caffeine Use Caffeine Use: Reports: Coffee ED ROS GENERAL - Review of Systems Review Of Systems: See Below ED EXAM, GENERAL - Physical Exam Exam: See Below Course - Orders/Labs/Meds Meds: Medications Discontinued Medications Generic Name Dose Route Start Last Admin Trade Name Freq PRN Reason Stop Dose Admin Azithromycin 500 mg 03/08/21 21:03 Azithromycin 250 Mg Tab PO 03/08/21 21:04 Q24H ONE Ondansetron HCl 4 mg 03/08/21 21:03 Ondansetron 4 Mg Tab.Dis PO 03/08/21 21:04 ONETIME ONE Departure - Departure Time of Disposition: 21:07 Disposition: Home, Self-Care 01 Condition: Good Clinical Impression: Otitis media Qualifiers: Otitis media type: unspecified Chronicity: acute Qualified Code(s): H66.90 - Otitis media, unspecified, unspecified ear - Discharge Information Instructions: Otitis Media, Adult, [id number] Referrals: Mario Cortez MD [Primary Care Provider] - Additional Instructions: You were seen and evaluated in the ER today secondary to pain to your right ear. Your physical exam is consistent with a right ear infection. We will start you on Zithromax which is an antibiotic to take daily for the next 4 days. You will also be given a prescription for Zofran to assist you with nausea if you should develop it with the antibiotic. Please make an appointment to see your family doctor in the next 2 to 3 days for reevaluation. The following information is given to patients seen in the emergency department who are being discharged to home. This information is to outline your options for follow-up care. We provide all patients seen in our emergency department with a follow-up referral. The need for follow-up, as well as the timing and circumstances, are variable depending upon the specifics of your emergency department visit. If you don't have a primary care physician on staff, we will provide you with a referral. We always advise you to contact your personal physician following an emergency department visit to inform them of the circumstance of the visit and for follow-up with them and/or the need for any referrals to a consulting specialist. The emergency department will also refer you to a specialist when appropriate. This referral assures that you have the opportunity for follow-up care with a specialist. All of these measure are taken in an effort to provide you with optimal care, which includes your follow-up. Under all circumstances we always encourage you to contact your private physician who remains a resource for coordinating your care. When calling for follow-up care, please make the office aware that this follow-up is from your recent emergency room visit. If for any reason you are refused follow-up, please contact the [facility] Emergency Department at and asked to speak to the emergency department charge nurse. [facility] [address] [place] [address] [id number] [address] [id number]
[2021-03-08 22:15] VITALS: BP 112/74; PULSE 78
== END 2021-03-08 21:25 | disposition home or self-care (01) ==
LOC: MW.ED 20:40
DX: H66.91 Otitis media, unspecified, right ear (principal); I25.10 Atherosclerotic heart disease of native coronary artery without angina pectoris; E78.00 Pure hypercholesterolemia, unspecified; I10 Essential (primary) hypertension; J44.9 Chronic obstructive pulmonary disease, unspecified; Z79.02 Long term (current) use of antithrombotics/antiplatelets; Z79.899 Other long term (current) drug therapy
CPT/HCPCS: 99282; A9270; 99283

== ENCOUNTER 2021-11-10 08:04 | Emergency (ER) | payer OTHER ==
--- NOTE | 2021-11-10 08:10 | EDM.PDOC ---
ED HPI GENERAL MEDICAL PROBLEM - General Stated Complaint: OFF BALANCE DIZZY Time Seen by Provider: 11/10/21 08:05 Source of Information: Reports: Patient History Limitations: Reports: No Limitations - History of Present Illness INITIAL COMMENTS - FREE TEXT/NARRATIVE: 61-year-old female past medical history prediabetes, hypertension, "difficulty swallowing, and currently on physical therapy" presents for head pressure sensation. Patient states that she was in her normal state of health yesterday. She states that she woke up around 3 AM with a pressure in her bilateral posterior head. She does not describe it as headache. She does not note any associated dizziness, room spinning sensation, one-sided body weakness, slurred speech, confusion, changes in vision. She denies any shortness of breath, chest pain, fevers, recent illnesses. Patient had an ER visit 2 years ago diagnosis peripheral vertigo and states that this feels different to her. No other symptoms reported. - Related Data Allergies Allergy/AdvReac Type Severity Reaction Status Date / Time No Known Allergies Allergy Verified 11/10/21 08:12 Home Meds: Home Meds Verapamil HCl [Verapamil ER] 180 mg PO DAILY 01/07/16 [History] atorvaSTATin [Lipitor] 40 mg PO BEDTIME 01/07/16 [History] Lisinopril 10 mg PO DAILY 09/22/16 [History] Albuterol [Ventolin HFA] 2 puff INH ASDIRECTED PRN 10/08/17 [History] Clopidogrel [Plavix] 75 mg PO DAILY 10/08/17 [History] Umeclidinium Brm/Vilanterol Tr [Anoro Ellipta 62.5-25 MCG] 1 puff INH DAILY 10/08/17 [History] Cyclobenzaprine [Flexeril] 10 mg PO BID PRN #12 tab 06/27/19 [Rx] traMADol HCl [Tramadol HCl] 50 mg PO Q6H PRN #16 tablet 06/27/19 [Rx] Scopolamine [Transderm-Scop] 1 each TD ASDIRECTED PRN #3 patch 07/21/19 [Rx] Azithromycin [Zithromax] 250 mg PO DAILY #4 tablet 03/08/21 [Rx] Ondansetron [Zofran ODT] 4 mg PO Q6H PRN #12 tab.dis 03/08/21 [Rx] Past Medical History HEENT History: Reports: Allergic Rhinitis, Impaired Vision Other HEENT History: uses reading glasses, has upper and lower dentures Cardiovascular History: Reports: CAD, High Cholesterol, Hypertension Respiratory History: Reports: Asthma, COPD Gastrointestinal History: Reports: Chronic Constipation Genitourinary History: Reports: None [employer] History: Reports: Musculoskeletal History: Reports: Back Pain, Chronic Neurological History: Reports: Migraines, TIA Other Neuro History: last TIA in 2003 Psychiatric History: Reports: Anxiety, Panic Attack Other Psychiatric History: not on meds Endocrine/Metabolic History: Reports: Hypothyroidism Hematologic History: Reports: Anemia Other Hematologic History: Hepatitis B Immunologic History: Reports: None Oncologic (Cancer) History: Reports: None Dermatologic History: Reports: Eczema Other Dermatologic History: behind knees and both thighs - Infectious Disease History Infectious Disease History: Reports: Chicken Pox, Hepatitis B - Past Surgical History Head Surgeries/Procedures: Reports: None HEENT Surgical History: Reports: None Cardiovascular Surgical History: Reports: None Respiratory Surgical History: Reports: None GI Surgical History: Reports: None Female Surgical History: Reports: Section Endocrine Surgical History: Reports: Parathyroidectomy, Other (See Below) Neurological Surgical History: Reports: None Musculoskeletal Surgical History: Reports: None Oncologic Surgical History: Reports: None Dermatological Surgical History: Reports: None Social & Family History - Family History Family Medical History: No Pertinent Family History - Caffeine Use Caffeine Use: Reports: Coffee ED ROS GENERAL - Review of Systems Review Of Systems: Comprehensive ROS is negative, except as noted in HPI. ED EXAM, GENERAL - Physical Exam Exam: See Below Exam Limited By: No Limitations General Appearance: Alert, WD/WN, No Apparent Distress Eye Exam: Bilateral Eye: EOMI, PERRL Ears: Hearing Grossly Normal Throat/Mouth: Normal Voice, No Airway Compromise Head: Atraumatic, Normocephalic Neck: Normal Inspection Respiratory/Chest: No Respiratory Distress, Lungs Clear, Normal Breath Sounds, No Accessory Muscle Use Cardiovascular: Normal Peripheral Pulses, Regular Rate, Rhythm Extremities: Normal Inspection Neurological: Alert, Oriented, CN II-XII Intact, Normal Cognition, Normal Gait, No Motor/Sensory Deficits Psychiatric: Normal Affect, Normal Mood Skin Exam: Warm, Dry, Intact, Normal Color Course - Vital Signs Last Recorded V/S: Last Vital Signs Temp 95.9 F L 11/10/21 08:10 Pulse 75 11/10/21 08:10 Resp 17 11/10/21 08:10 BP 157/94 H 11/10/21 08:10 Pulse Ox 98 11/10/21 08:10 - Orders/Labs/Meds Orders: Active Orders 24 hr Category Date Time Status Saline Lock Insert [OM.PC] Stat Oth 11/10/21 08:14 Ordered Labs: Laboratory Tests 11/10/21 11/10/21 11/10/21 Range/Units 08:39 08:39 08:40 WBC 3.30 L (4.0-11.0) K/uL RBC 4.36 (4.30-5.90) M/uL Hgb 11.4 L (12.0-16.0) g/dL Hct 35.8 L (36.0-46.0) % MCV 82.1 (80.0-98.0) fL MCH 26.1 L (27.0-32.0) pg MCHC 31.8 (31.0-37.0) g/dL RDW Std Deviation 39.3 (28.0-62.0) fl RDW Coeff of Bonita 13 (11.0-15.0) % Plt Count 245 (150-400) K/uL MPV 9.30 (7.40-12.00) fL Neut % (Auto) 47.6 L (48.0-80.0) % Lymph % (Auto) 39.7 (16.0-40.0) % Thurston % (Auto) 8.5 (0.0-15.0) % Eos % (Auto) 3.6 (0.0-7.0) % Baso % (Auto) 0.6 (0.0-1.5) % Neut # (Auto) 1.6 (1.4-5.7) K/uL Lymph # (Auto) 1.3 (0.6-2.4) K/uL Thurston # (Auto) 0.3 (0.0-0.8) K/uL Eos # (Auto) 0.1 (0.0-0.7) K/uL Baso # (Auto) 0.0 (0.0-0.1) K/uL Nucleated RBC % 0.0 /100WBC Nucleated RBCs # 0 K/uL Sodium 139 (136-145) mmol/L Potassium 3.7 (3.5-5.1) mmol/L Chloride 101 (98-107) mmol/L Carbon Dioxide 29.7 (21.0-32.0) mmol/L BUN 22 H (7.0-18.0) mg/dL Creatinine 1.1 H (0.6-1.0) mg/dL Est Cr Clr Drug Dosing 46.38 mL/min Estimated GFR (MDRD) > 60.0 ml/min Glucose 96 (74-106) mg/dL Calcium 8.8 (8.5-10.1) mg/dL Magnesium 2.0 (1.8-2.4) mg/dL Total Bilirubin 0.3 (0.2-1.0) mg/dL AST 23 (15-37) IU/L ALT 24 (14-63) IU/L Alkaline Phosphatase 70 (46-116) U/L Total Protein 7.3 (6.4-8.2) g/dL Albumin 3.5 (3.4-5.0) g/dL Globulin 3.8 (2.6-4.0) g/dL Albumin/Globulin Ratio 0.9 (0.9-1.6) SARS-CoV-2 RNA (FERNIE) NEGATIVE (NEGATIVE) Meds: Medications Discontinued Medications Generic Name Dose Route Start Last Admin Trade Name Duane PRN Reason Stop Dose Admin Acetaminophen 1,000 mg 11/10/21 08:18 11/10/21 08:34 Acetaminophen 500 Mg Tab PO 11/10/21 08:19 1,000 mg ONETIME ONE Administration Diphenhydramine HCl 25 mg 11/10/21 08:14 11/10/21 08:34 Diphenhydramine 50 Mg/Ml Sdv IVPUSH 11/10/21 08:15 25 mg ONETIME ONE Administration Sodium Chloride 1,000 mls @ 999 mls/hr 11/10/21 08:14 11/10/21 08:34 Normal Saline IV 11/10/21 09:14 999 mls/hr .Bolus ONE Administration Metoclopramide HCl 10 mg 11/10/21 08:14 11/10/21 08:34 Metoclopramide 10 Mg/2 Ml Sdv IVPUSH 11/10/21 08:15 10 mg ONETIME ONE Administration - Re-Assessments/Exams Free Text/Narrative Re-Assessment/Exam: 11/10/21 08:20 Patient presents with head pressure sensation. Neuro exam is unremarkable. Will get basic labs, head CT, Covid testing. Will treat symptomatically with IV fluid bolus, Tylenol, Reglan, Benadryl. 11/10/21 09:48 Labs are grossly unremarkable. Patient does have mild leukopenia however through chart surgery it appears that this is her baseline. Covid test is negative. Head CT is normal. Patient notes resolution of symptoms after medications as mentioned above. Uncertain etiology of patient's symptoms, however, I believe she is stable for follow-up with her primary care physician. Return precautions were discussed with patient at length and she understands. Departure - Departure Time of Disposition: 09:49 Disposition: Home, Self-Care 01 Condition: Good Clinical Impression: Headache Qualifiers: Headache type: unspecified Headache chronicity pattern: episodic headache Intractability: not intractable Qualified Code(s): R51 - Headache - Discharge Information Instructions: General Headache Without Cause Referrals: PCP,None [Ordering Only Provider] - Additional Instructions: Your work-up in the emergency department was unremarkable. Your head CT as well as all of your labs look great. Your Covid test was negative. If you have not gotten the vaccine I would encourage you to get one as soon as possible as COVID will likely get worse before it gets better this winter. We always recommend that you follow-up with your primary care physician to discuss her symptoms. If your symptoms worsen prior to follow-up with your primary care physician you are welcome and encouraged to come back to the emergency department for reassessment. You can take over the counter ibuprofen 400mg every 6 hours in addition to [id number] acetaminophen (tylenol) 1000mg every 6 hours to help with your symptoms. Please drink plenty of fluids. The following information is given to patients seen in the emergency department who are being discharged to home. This information is to outline your options for follow-up care. We provide all patients seen in our emergency department with a follow-up referral. The need for follow-up, as well as the timing and circumstances, are variable depending upon the specifics of your emergency department visit. If you don't have a primary care physician on staff, we will provide you with a referral. We always advise you to contact your personal physician following an emergency department visit to inform them of the circumstance of the visit and for follow-up with them and/or the need for any referrals to a consulting specialist. The emergency department will also refer you to a specialist when appropriate. This referral assures that you have the opportunity for follow-up care with a specialist. All of these measure are taken in an effort to provide you with optimal care, which includes your follow-up. Under all circumstances we always encourage you to contact your private physician who remains a resource for coordinating your care. When calling for follow-up care, please make the office aware that this follow-up is from your recent emergency room visit. If for any reason you are refused follow-up, please contact the Emergency Department at and asked to speak to the emergency department charge nurse. Please follow up with your primary care physician. If you do not have a primary care physician, see below: [facility] [address] [place] [id number] My [facility] [address] [place] [phone] [facility] [address] [place] [id number] Sepsis Event Note (ED) - Focused Exam Vital Signs: Vital Signs Temp Temp Pulse Resp BP Pulse Ox 11/10/21 08:10 97.5 F 95.9 F L 75 17 157/94 H 98 - My Orders Last 24 Hours: My Active Orders 11/10/21 08:14 Saline Lock Insert [OM.PC] Stat - Assessment/Plan Last 24 Hours: My Active Orders 11/10/21 08:14 Saline Lock Insert [OM.PC] Stat
[2021-11-10] MEDS ORDERED: Sodium Chloride 0.9% 1,000 ML IV ONE (08:14)
[2021-11-10] MEDS ORDERED: diphenhydrAMINE 50 MG/ML SDV IVPUSH ONE (08:14)
[2021-11-10] MEDS ORDERED: Metoclopramide 10 MG/2 ML SDV IVPUSH ONE (08:14)
[2021-11-10] MEDS ORDERED: Acetaminophen 500 MG Tab PO ONE (08:18)
[2021-11-10 09:20] LABS: BLOOD UREA NITROGEN,BUN 22 mg/dL (7.0-18.0); CARBON DIOXIDE,CO2 29.7 mmol/L (21.0-32.0); CHLORIDE,CL 101 mmol/L (98-107); GLUCOSE RANDOM 96 mg/dL (74-106); POTASSIUM,K 3.7 mmol/L (3.5-5.1); SODIUM,NA 139 mmol/L (136-145)
--- NOTE | 2021-11-10 09:32 | CT ---
INDICATION: Headache and dizziness. TECHNIQUE: CT head without contrast. COMPARISON: July 21, 2019. FINDINGS: CSF spaces: Within normal limits for age. Brain parenchyma and extra-axial spaces: The weeks-white differentiation is normal. No sign of mass, hemorrhage, or midline shift. No extra-axial fluid collection. Skull base and calvarium: The visualized paranasal sinuses and mastoid air cells demonstrate no acute or significant findings. The visualized orbits are grossly unremarkable. No skull fractures. IMPRESSION: Unremarkable noncontrast head CT. No finding to explain headache or dizziness and no significant changes from the prior exam. Please note that all CT scans at this facility use dose modulation, iterative reconstruction, and/or weight-based dosing when appropriate to reduce radiation dose to as low as reasonably achievable. Dictated by Quintin Bailey MD @ 11/10/2021 9:29:34 AM (Electronically Signed)
[2021-11-10 10:14] VITALS: BP 151/77; PULSE 68
== END 2021-11-10 10:14 | disposition home or self-care (01) ==
LOC: MW.ED 08:04
DX: R51.9 Headache, unspecified (principal); I10 Essential (primary) hypertension; E78.00 Pure hypercholesterolemia, unspecified; I25.10 Atherosclerotic heart disease of native coronary artery without angina pectoris; J44.9 Chronic obstructive pulmonary disease, unspecified; E03.9 Hypothyroidism, unspecified; E11.9 Type 2 diabetes mellitus without complications; Z79.899 Other long term (current) drug therapy; Z20.822 Contact with and (suspected) exposure to COVID-19
CPT/HCPCS: 36415; 70450; 80053; 83735; 85025; 87635; 96374; 96375; 99284; A9270; J1200; J2765; J7030; U0002

== ENCOUNTER 2022-02-24 00:36 | Emergency (ER) | payer OTHER ==
[2022-02-24] MEDS ORDERED: Sodium Chloride 0.9% 2.5 ML Syringe FLUSH PRN (00:49)
[2022-02-24] MEDS ORDERED: Sodium Chloride 0.9% 10 ML Syringe FLUSH PRN (00:49)
[2022-02-24] MEDS ORDERED: Ondansetron 4 MG/2 ML SDV IVPUSH ONE (01:02)
[2022-02-24] MEDS ORDERED: Meclizine 25 MG Tab PO ONE (01:08)
[2022-02-24 01:45] LABS: CARBON DIOXIDE,CO2 30.5 mmol/L (21.0-32.0); POTASSIUM,K 3.6 mmol/L (3.5-5.1)
[2022-02-24] MEDS ORDERED: Iopamidol 755 MG/ML 500 ML Multipack Bottle IVPUSH STA (02:16)
[2022-02-24 03:27] VITALS: BP 106/75; PULSE 72
== END 2022-02-24 03:35 | disposition home or self-care (01) ==
LOC: MW.ED 00:36
DX: R42 Dizziness and giddiness (principal); J44.9 Chronic obstructive pulmonary disease, unspecified; E78.00 Pure hypercholesterolemia, unspecified; I10 Essential (primary) hypertension; E03.9 Hypothyroidism, unspecified; Z86.73 Personal history of transient ischemic attack (TIA), and cerebral infarction without residual deficits; Z79.899 Other long term (current) drug therapy
CPT/HCPCS: 36415; 70450; 70496; 70498; 80053; 84484; 85025; 93005; 96374; 99284; A9270; J2405; Q9967; 99283

== ENCOUNTER 2023-01-29 01:54 | Emergency (ER) | payer OTHER ==
[2023-01-29 03:58] LABS: CARBON DIOXIDE,CO2 32.4 mmol/L (21.0-32.0); POTASSIUM,K 3.8 mmol/L (3.5-5.1)
[2023-01-29 04:47] VITALS: BP 177/106; PULSE 71
== END 2023-01-29 04:47 | disposition home or self-care (01) ==
LOC: MW.ED 01:54
DX: I10 Essential (primary) hypertension (principal); R51.9 Headache, unspecified; I25.10 Atherosclerotic heart disease of native coronary artery without angina pectoris; E78.00 Pure hypercholesterolemia, unspecified; J44.9 Chronic obstructive pulmonary disease, unspecified; Z79.02 Long term (current) use of antithrombotics/antiplatelets; Z79.899 Other long term (current) drug therapy
CPT/HCPCS: 36415; 70450; 70450-26; 80048; 85025; 99283; 99284

== ENCOUNTER 2023-06-03 21:04 | Emergency (ER) | payer OTHER ==
[2023-06-03] MEDS ORDERED: Sodium Chloride 0.9% 10 ML Syringe FLUSH PRN (21:26)
[2023-06-03] MEDS ORDERED: Sodium Chloride 0.9% 2.5 ML Syringe FLUSH PRN (21:26)
[2023-06-03] MEDS ORDERED: Sodium Chloride 0.9% 1,000 ML IV ONE (21:26)
[2023-06-03] MEDS ORDERED: Metoclopramide 10 MG/2 ML SDV IVPUSH ONE (21:27)
[2023-06-03 22:00] LABS: BASOPHILS PERCENT AUTO 0.5 % (0.0-1.5); EOSINOPHILS ABSOLUTE AUTO 0.1 K/uL (0.0-0.7); EOSINOPHILS PERCENT AUTO 2.1 % (0.0-7.0); HEMATOCRIT 37.5 % (36.0-46.0); LYMPHOCYTES ABSOLUTE AUTO 1.8 K/uL (0.6-2.4); MEAN CORPUSCULAR HEMOGLOBIN 26.1 pg (27.0-32.0); MEAN CORPUSCULAR VOLUME 81.7 fL (80.0-98.0); MONOCYTES ABSOLUTE AUTO 0.4 K/uL (0.0-0.8); MONOCYTES PERCENT AUTO 9.4 % (0.0-15.0); NRBC ABSOLUTE 0 K/uL; PLATELET COUNT,PLT 240 K/uL (150-400); RED BLOOD CELL COUNT 4.59 M/uL (4.30-5.90); WHITE BLOOD CELL COUNT,WBC 4.34 K/uL (4.0-11.0)
[2023-06-03 22:01] LABS: APPEARANCE,URINE CLEAR; BILIRUBIN,URINE NEGATIVE (NEGATIVE); COLOR,URINE YELLOW; GLUCOSE,URINE NEGATIVE (NEGATIVE); KETONES,URINE NEGATIVE (NEGATIVE); LEUKOCYTE ESTERASE,URINE NEGATIVE (NEGATIVE); NITRITE,URINE NEGATIVE (NEGATIVE); OCCULT BLOOD,URINE NEGATIVE (NEGATIVE); PROTEIN,URINE NEGATIVE (NEGATIVE); UROBILINOGEN,URINE 0.2 EU/dL (<2.0)
[2023-06-03 22:16] LABS: INR 0.98 (0.86-1.11)
[2023-06-03 22:18] LABS: BACTERIA,URINE FEW (NEGATIVE); EPITHELIAL CELLS,URINE OCCASIONAL (NONE-FEW); MUCUS,URINE LIGHT (NONE-MOD); RBC,URINE NONE SEEN (0-2/HPF); WBC,URINE 0-1 (0-5/HPF)
[2023-06-03 22:40] LABS: A/G RATIO 0.8 (0.9-1.6); ALBUMIN 3.6 g/dL (3.4-5.0); BILIRUBIN TOTAL 0.2 mg/dL (0.2-1.0); CALCIUM 9.1 mg/dL (8.5-10.1); CARBON DIOXIDE,CO2 30.4 mmol/L (21.0-32.0); CREATININE 1.1 mg/dL (0.6-1.0); EST CRCL DRUG DOSING (CG) 45.79 mL/min; POTASSIUM,K 3.6 mmol/L (3.5-5.1); TSH ULTRASENSITIVE 1.19 uIU/mL (0.36-3.74)
[2023-06-03 23:30] VITALS: BP 164/99; PULSE 75
== END 2023-06-04 00:01 | disposition home or self-care (01) ==
LOC: MW.ED 21:04
DX: H66.92 Otitis media, unspecified, left ear (principal); I25.10 Atherosclerotic heart disease of native coronary artery without angina pectoris; I10 Essential (primary) hypertension; E78.00 Pure hypercholesterolemia, unspecified; J44.9 Chronic obstructive pulmonary disease, unspecified; Z79.899 Other long term (current) drug therapy; Z79.02 Long term (current) use of antithrombotics/antiplatelets
CPT/HCPCS: 36415; 70450; 71045; 80053; 81001; 84443; 84484; 85025; 85610; 93005; 96361; 96374; 99284; J2765; J3490; J7030; 93010

== ENCOUNTER 2023-09-10 06:51 | Emergency (ER) | payer OTHER ==
[2023-09-10] MEDS ORDERED: Sodium Chloride 0.9% 10 ML Syringe FLUSH PRN (07:30)
[2023-09-10] MEDS ORDERED: Sodium Chloride 0.9% 2.5 ML Syringe FLUSH PRN (07:30)
[2023-09-10] MEDS ORDERED: Sodium Chloride 0.9% 1,000 ML IV ONE (07:34)
[2023-09-10] MEDS ORDERED: Tranexamic Acid 1,000 MG/10 ML Vial ONE (07:34)
[2023-09-10 07:54] LABS: BASOPHILS ABSOLUTE AUTO 0.03 K/uL (0.00-0.20); BASOPHILS PERCENT AUTO 0.7 % (0.0-1.0); EOSINOPHILS PERCENT AUTO 2.5 % (0.0-6.0); HEMATOCRIT 37.5 % (37.0-47.0); IMMATURE GRAN ABSOLUTE AUTO 0.02 K/uL (0.00-0.05); IMMATURE GRAN PERCENT AUTO 0.5 % (0.0-0.4); LYMPHOCYTES ABSOLUTE AUTO 1.45 K/uL (1.00-4.80); LYMPHOCYTES PERCENT AUTO 35.8 % (24.0-44.0); MEAN CORPUSCULAR VOLUME 81.3 fL (83.0-99.0); MEAN PLATELET VOLUME 8.5 fL (9.4-12.3); MONOCYTES ABSOLUTE AUTO 0.37 K/uL (0.00-0.80); MONOCYTES PERCENT AUTO 9.1 % (0.0-8.0); NEUTROPHILS ABSOLUTE AUTO 2.08 K/uL (1.80-7.70); NEUTROPHILS PERCENT AUTO 51.4 % (41.0-71.0); PLATELET COUNT,PLT 272 K/uL (150-400); RED BLOOD CELL COUNT 4.61 M/uL (4.10-5.30); WHITE BLOOD CELL COUNT,WBC 4.05 K/uL (3.9-11.3)
[2023-09-10] MEDS ORDERED: Verapamil 180 MG Tab.ER PO ONE (07:56)
[2023-09-10] MEDS ORDERED: Lisinopril 10 MG Tab PO ONE (07:56)
[2023-09-10 08:02] LABS: A/G RATIO 0.8 (0.9-1.6); ALBUMIN 3.9 g/dL (3.4-5.0); BILIRUBIN TOTAL 0.2 mg/dL (0.2-1.0); CALCIUM 9.3 mg/dL (8.5-10.1); CARBON DIOXIDE,CO2 29.3 mmol/L (21.0-32.0); EST CRCL DRUG DOSING (CG) 50.37 mL/min; POTASSIUM,K 3.6 mmol/L (3.5-5.1); PROTEIN TOTAL,TP 9.1 g/dL (6.4-8.2)
[2023-09-10] MEDS ORDERED: LORazepam 2 MG/ML SDV IVPUSH ONE (08:21)
[2023-09-10 08:42] VITALS: BP 177/115; PULSE 90
== END 2023-09-10 09:14 ==
LOC: MW.ED 06:51
DX: R04.2 Hemoptysis (principal); I10 Essential (primary) hypertension; I25.10 Atherosclerotic heart disease of native coronary artery without angina pectoris; E78.00 Pure hypercholesterolemia, unspecified; E89.0 Postprocedural hypothyroidism; J44.9 Chronic obstructive pulmonary disease, unspecified; Z86.73 Personal history of transient ischemic attack (TIA), and cerebral infarction without residual deficits; Z98.890 Other specified postprocedural states; Z79.02 Long term (current) use of antithrombotics/antiplatelets; Z79.899 Other long term (current) drug therapy
CPT/HCPCS: 36415; 80053; 85025; 85610; 85730; 94640; 96361; 96374; 99285; A9270; J2060; J3490; J7030; 99291

== ENCOUNTER 2023-09-10 20:16 | Emergency (ER) | payer OTHER ==
[2023-09-10] MEDS ORDERED: Tranexamic Acid 1,000 MG/10 ML Vial ONE (20:50)
[2023-09-10] MEDS ORDERED: Lidocaine 2% 5 ML SDV ONE (20:53)
[2023-09-11 03:44] VITALS: BP 144/97; PULSE 68
== END 2023-09-10 21:57 | disposition home or self-care (01) ==
LOC: MW.ED 20:16
DX: R04.1 Hemorrhage from throat (principal); I25.10 Atherosclerotic heart disease of native coronary artery without angina pectoris; E78.00 Pure hypercholesterolemia, unspecified; I10 Essential (primary) hypertension; J44.9 Chronic obstructive pulmonary disease, unspecified; E03.9 Hypothyroidism, unspecified; Z86.73 Personal history of transient ischemic attack (TIA), and cerebral infarction without residual deficits; Z98.890 Other specified postprocedural states; Z79.899 Other long term (current) drug therapy
CPT/HCPCS: 99283; J3490

== ENCOUNTER 2023-11-07 09:16 | Day surgery (SDC) | payer OTHER ==
[~2023-11-07 09:16] MED LIST: Lactated Ringers 1,000 ML IV SCH
[2023-11-07] MEDS ORDERED: Lidocaine 2% 5 ML SDV ONE (09:37)
[2023-11-07] MEDS ORDERED: Propofol 200 MG/20 ML SDV ONE (09:40)
[2023-11-07] MEDS ORDERED: Esmolol 100 MG/10 ML SDV ONE (09:58)
[2023-11-07] MEDS ORDERED: ePHEDrine 50 MG/ML SDV ONE (10:03)
[2023-11-07] MEDS ORDERED: Dexamethasone 4 MG/ML 5 ML MDV ONE (10:05)
[2023-11-07] MEDS ORDERED: Lactated Ringers 1,000 ML IV SCH (10:15)
[2023-11-07 10:47] VITALS: BP 132/88; PULSE 78
== END 2023-11-07 10:56 | disposition home or self-care (01) ==
LOC: MW.SDS 09:16
PROVIDERS: ATTEND Surgery
DX: K29.50 Unspecified chronic gastritis without bleeding (principal); B96.81 Helicobacter pylori [H. pylori] as the cause of diseases classified elsewhere; K21.00 Gastro-esophageal reflux disease with esophagitis, without bleeding; I25.10 Atherosclerotic heart disease of native coronary artery without angina pectoris; J44.9 Chronic obstructive pulmonary disease, unspecified; E78.5 Hyperlipidemia, unspecified; I10 Essential (primary) hypertension; F41.9 Anxiety disorder, unspecified; D68.9 Coagulation defect, unspecified; E03.9 Hypothyroidism, unspecified; Z87.891 Personal history of nicotine dependence; Z79.890 Hormone replacement therapy; Z79.899 Other long term (current) drug therapy
CPT/HCPCS: 00731; J1100; J2704; J3490; J7120

== ENCOUNTER 2023-11-09 12:45 | Emergency (ER) | payer OTHER ==
[2023-11-09] MEDS ORDERED: Oxymetazoline 0.05% Nasal Spray 30 ML Bottle NAS ONE (13:11)
[2023-11-09 14:09] VITALS: BP 159/114; PULSE 76
== END 2023-11-09 13:32 | disposition home or self-care (01) ==
LOC: MW.ED 12:45
DX: R04.0 Epistaxis (principal); I10 Essential (primary) hypertension; E78.00 Pure hypercholesterolemia, unspecified; I25.10 Atherosclerotic heart disease of native coronary artery without angina pectoris; J44.9 Chronic obstructive pulmonary disease, unspecified; E03.9 Hypothyroidism, unspecified; Z79.01 Long term (current) use of anticoagulants; Z79.899 Other long term (current) drug therapy; Z86.73 Personal history of transient ischemic attack (TIA), and cerebral infarction without residual deficits
CPT/HCPCS: 99283; A9270

== ENCOUNTER 2024-01-08 11:44 | Emergency (ER) | payer OTHER ==
[2024-01-08 12:31] LABS: BASOPHILS ABSOLUTE AUTO 0.04 K/uL (0.00-0.20); EOSINOPHILS ABSOLUTE AUTO 0.44 K/uL (0.00-0.45); EOSINOPHILS PERCENT AUTO 11.5 % (0.0-6.0); HEMATOCRIT 37.7 % (37.0-47.0); HEMOGLOBIN 11.9 g/dL (12.0-16.0); IMMATURE GRAN ABSOLUTE AUTO 0.01 K/uL (0.00-0.05); IMMATURE GRAN PERCENT AUTO 0.3 % (0.0-0.4); LYMPHOCYTES ABSOLUTE AUTO 1.12 K/uL (1.00-4.80); LYMPHOCYTES PERCENT AUTO 29.2 % (24.0-44.0); MEAN CORPUSCULAR HEMOGLOBIN 25.5 pg (28.0-32.0); MEAN CORPUSCULAR HGB CONC 31.6 g/dL (32.0-36.0); MEAN CORPUSCULAR VOLUME 80.9 fL (83.0-99.0); MEAN PLATELET VOLUME 8.5 fL (9.4-12.3); MONOCYTES PERCENT AUTO 10.4 % (0.0-8.0); NEUTROPHILS ABSOLUTE AUTO 1.83 K/uL (1.80-7.70); NEUTROPHILS PERCENT AUTO 47.6 % (41.0-71.0); PLATELET COUNT,PLT 249 K/uL (150-400); RED BLOOD CELL COUNT 4.66 M/uL (4.10-5.30); WHITE BLOOD CELL COUNT,WBC 3.84 K/uL (3.9-11.3)
[2024-01-08 12:47] LABS: INR 0.97 (0.86-1.11)
[2024-01-08 12:55] LABS: A/G RATIO 0.7 (0.9-1.6); ALANINE AMINOTRANSFERASE,ALT 21 IU/L (14-63); ALBUMIN 3.5 g/dL (3.4-5.0); ALKALINE PHOSPHATASE 76 U/L (46-116); ASPARTATE AMNIOTRANSFERASE,AST 20 IU/L (15-37); BILIRUBIN TOTAL 0.2 mg/dL (0.2-1.0); BLOOD UREA NITROGEN,BUN 32 mg/dL (7.0-18.0); CALCIUM 9.5 mg/dL (8.5-10.1); CARBON DIOXIDE,CO2 27.8 mmol/L (21.0-32.0); CHLORIDE,CL 101 mmol/L (98-107); CREATININE 0.9 mg/dL (0.6-1.0); EST CRCL DRUG DOSING (CG) 55.25 mL/min; ESTIMATED GFR 72 mL/min (>60); GLUCOSE RANDOM 93 mg/dL (74-106); POTASSIUM,K 4.2 mmol/L (3.5-5.1); PROTEIN TOTAL,TP 8.4 g/dL (6.4-8.2); SODIUM,NA 137 mmol/L (136-145)
[2024-01-08] MEDS: Oxymetazoline 0.05% Nasal Spray 30 ML Bottle NAS ONE (13:05)
[2024-01-08] MEDS: Tranexamic Acid 1,000 MG/10 ML Vial TOP ONE (13:41)
[2024-01-08] MEDS: Lidocaine 1% 5 ML VIAL INJECT ONE (13:41)
[2024-01-08 14:44] VITALS: BP 180/104; PULSE 66
== END 2024-01-08 15:14 | disposition home or self-care (01) ==
LOC: MW.ED 11:44
DX: R04.0 Epistaxis (principal); I10 Essential (primary) hypertension; I25.10 Atherosclerotic heart disease of native coronary artery without angina pectoris; J44.9 Chronic obstructive pulmonary disease, unspecified; E03.9 Hypothyroidism, unspecified; Z79.01 Long term (current) use of anticoagulants; Z79.899 Other long term (current) drug therapy
CPT/HCPCS: 36415; 71046; 80053; 84484; 85025; 85610; 85730; 86850; 86900; 86901; 93005; 99284; A9270; 93010; 99283; J3490

== ENCOUNTER 2024-10-03 09:46 | Emergency (ER) | payer OTHER ==
[2024-10-03 10:37] LABS: APPEARANCE,URINE CLEAR; BILIRUBIN,URINE NEGATIVE (NEGATIVE); COLOR,URINE YELLOW; GLUCOSE,URINE NEGATIVE (NEGATIVE); KETONES,URINE NEGATIVE (NEGATIVE); LEUKOCYTE ESTERASE,URINE NEGATIVE (NEGATIVE); NITRITE,URINE NEGATIVE (NEGATIVE); OCCULT BLOOD,URINE NEGATIVE (NEGATIVE); PROTEIN,URINE NEGATIVE (NEGATIVE); UROBILINOGEN,URINE 0.2 EU/dL (<2.0)
[2024-10-03] MEDS: Lidocaine 4% 1 each Patch TOP STA (10:37)
[2024-10-03] MEDS: Ketorolac 30 MG/ML SDV IM ONE (10:37)
[2024-10-03 10:50] VITALS: BP 173/93
[2024-10-03 11:13] VITALS: PULSE 64
== END 2024-10-03 11:12 | disposition home or self-care (01) ==
LOC: MW.ED 09:46
DX: M54.31 Sciatica, right side (principal); I10 Essential (primary) hypertension; J44.9 Chronic obstructive pulmonary disease, unspecified; Z79.899 Other long term (current) drug therapy; Z79.890 Hormone replacement therapy; Z75.8 Other problems related to medical facilities and other health care
CPT/HCPCS: 81003; 96372; 99283; A9270; J1885

== ENCOUNTER 2025-05-27 08:45 | Emergency (ER) | payer OTHER ==
[2025-05-27] MEDS ORDERED: Sodium Chloride 0.9% 10 ML Syringe FLUSH PRN (09:57)
[2025-05-27] MEDS ORDERED: Sodium Chloride 0.9% 2.5 ML Syringe FLUSH PRN (09:57)
[2025-05-27 10:46] LABS: BASOPHILS ABSOLUTE AUTO 0.03 K/uL (0.00-0.20); BASOPHILS PERCENT AUTO 0.5 % (0.0-1.0); EOSINOPHILS ABSOLUTE AUTO 0.86 K/uL (0.00-0.45); EOSINOPHILS PERCENT AUTO 14.0 % (0.0-6.0); IMMATURE GRAN ABSOLUTE AUTO 0.01 K/uL (0.00-0.05); IMMATURE GRAN PERCENT AUTO 0.2 % (0.0-0.4); LYMPHOCYTES ABSOLUTE AUTO 1.09 K/uL (1.00-4.80); LYMPHOCYTES PERCENT AUTO 17.7 % (24.0-44.0); MEAN PLATELET VOLUME 8.5 fL (9.4-12.3); MONOCYTES ABSOLUTE AUTO 0.45 K/uL (0.00-0.80); MONOCYTES PERCENT AUTO 7.3 % (0.0-8.0); NEUTROPHILS ABSOLUTE AUTO 3.71 K/uL (1.80-7.70); NEUTROPHILS PERCENT AUTO 60.3 % (41.0-71.0); NRBC ABSOLUTE 0.00 K/uL (0.00-0.02); NRBC PERCENT 0.0 /100WBC (0.0-0.2); PLATELET COUNT,PLT 196 K/uL (150-400); RED BLOOD CELL COUNT 4.52 M/uL (4.10-5.30); WHITE BLOOD CELL COUNT,WBC 6.15 K/uL (3.9-11.3)
[2025-05-27 11:16] LABS: A/G RATIO 0.8 (0.9-1.6); ALANINE AMINOTRANSFERASE,ALT 33.0 IU/L (14-63); ASPARTATE AMNIOTRANSFERASE,AST 23.0 IU/L (15-37); BILIRUBIN TOTAL 0.3 mg/dL (0.2-1.0); BLOOD UREA NITROGEN,BUN 23.0 mg/dL (7.0-18.0); CARBON DIOXIDE,CO2 30.7 mmol/L (21.0-32.0); CHLORIDE,CL 102.0 mmol/L (98-107); CREATININE 0.9 mg/dL (0.6-1.0); EST CRCL DRUG DOSING (CG) 54.53 mL/min; GLUCOSE RANDOM 93.0 mg/dL (74-106); POTASSIUM,K 4.2 mmol/L (3.5-5.1); PROTEIN TOTAL,TP 7.8 g/dL (6.4-8.2); SODIUM,NA 140.0 mmol/L (136-145)
[2025-05-27 11:18] LABS: ESTIMATED GFR 71.0 mL/min (>60)
[2025-05-27 11:25] LABS: APPEARANCE,URINE CLEAR; GLUCOSE,URINE NEGATIVE (NEGATIVE); OCCULT BLOOD,URINE NEGATIVE (NEGATIVE)
[2025-05-27 12:04] VITALS: BP 196/108; PULSE 73
== END 2025-05-27 12:04 | disposition home or self-care (01) ==
LOC: MW.ED 08:45
DX: R42 Dizziness and giddiness (principal); I10 Essential (primary) hypertension; E86.0 Dehydration; J44.89 Other specified chronic obstructive pulmonary disease; Z75.3 Unavailability and inaccessibility of health-care facilities; Z79.890 Hormone replacement therapy; Z79.899 Other long term (current) drug therapy
CPT/HCPCS: 36415; 70450; 80053; 81003; 83735; 85025; 93005; 96360; 99284; A9270; J7030; 99283

== ENCOUNTER 2025-09-12 18:35 | Emergency (ER) | payer OTHER ==
[2025-09-12] MEDS ORDERED: Sodium Chloride 0.9% 2.5 ML Syringe FLUSH PRN (19:28)
[2025-09-12] MEDS ORDERED: Sodium Chloride 0.9% 10 ML Syringe FLUSH PRN (19:28)
[2025-09-12 20:13] LABS: BASOPHILS ABSOLUTE AUTO 0.03 K/uL (0.00-0.20); BASOPHILS PERCENT AUTO 0.6 % (0.0-1.0); EOSINOPHILS ABSOLUTE AUTO 0.21 K/uL (0.00-0.45); EOSINOPHILS PERCENT AUTO 4.5 % (0.0-6.0); IMMATURE GRAN ABSOLUTE AUTO 0.01 K/uL (0.00-0.05); IMMATURE GRAN PERCENT AUTO 0.2 % (0.0-0.4); LYMPHOCYTES ABSOLUTE AUTO 1.14 K/uL (1.00-4.80); LYMPHOCYTES PERCENT AUTO 24.3 % (24.0-44.0); MEAN PLATELET VOLUME 8.6 fL (9.4-12.3); MONOCYTES ABSOLUTE AUTO 0.38 K/uL (0.00-0.80); MONOCYTES PERCENT AUTO 8.1 % (0.0-8.0); NEUTROPHILS ABSOLUTE AUTO 2.92 K/uL (1.80-7.70); NEUTROPHILS PERCENT AUTO 62.3 % (41.0-71.0); NRBC ABSOLUTE 0.00 K/uL (0.00-0.02); NRBC PERCENT 0.0 /100WBC (0.0-0.2); PLATELET COUNT,PLT 217 K/uL (150-400); RED BLOOD CELL COUNT 4.69 M/uL (4.10-5.30); WHITE BLOOD CELL COUNT,WBC 4.69 K/uL (3.9-11.3)
[2025-09-12 20:30] LABS: INR 1.0 (0.86-1.11); PTT,PARTIAL THROMBOPLSTIN TIME 28.8 SEC (23.9-30.7)
[2025-09-12 20:50] LABS: A/G RATIO 0.9 (0.9-1.6); ALANINE AMINOTRANSFERASE,ALT 27.0 IU/L (14-63); ASPARTATE AMNIOTRANSFERASE,AST 23.0 IU/L (15-37); BILIRUBIN TOTAL 0.4 mg/dL (0.2-1.0); BLOOD UREA NITROGEN,BUN 29.0 mg/dL (7.0-18.0); CARBON DIOXIDE,CO2 31.9 mmol/L (21.0-32.0); CHLORIDE,CL 100.0 mmol/L (98-107); CREATININE 0.9 mg/dL (0.6-1.0); EST CRCL DRUG DOSING (CG) 54.53 mL/min; GLUCOSE RANDOM 92.0 mg/dL (74-106); POTASSIUM,K 3.8 mmol/L (3.5-5.1); PROTEIN TOTAL,TP 8.8 g/dL (6.4-8.2); SODIUM,NA 138.0 mmol/L (136-145)
[2025-09-12 20:58] LABS: ESTIMATED GFR 71.0 mL/min (>60)
[2025-09-12] MEDS: Iopamidol 755 MG/ML 500 ML Multipack Bottle IVPUSH ONE (21:23)
[2025-09-12] MEDS: diphenhydrAMINE 50 MG/ML SDV IVPUSH ONE (22:12)
[2025-09-12] MEDS: hydrALAZINE 20 MG/ML SDV IVPUSH ONE (22:32)
[2025-09-13 00:49] LABS: BASOPHILS ABSOLUTE AUTO 0.04 K/uL (0.00-0.20); BASOPHILS PERCENT AUTO 1.1 % (0.0-1.0); EOSINOPHILS ABSOLUTE AUTO 0.21 K/uL (0.00-0.45); EOSINOPHILS PERCENT AUTO 5.7 % (0.0-6.0); IMMATURE GRAN ABSOLUTE AUTO 0.00 K/uL (0.00-0.05); IMMATURE GRAN PERCENT AUTO 0.0 % (0.0-0.4); LYMPHOCYTES ABSOLUTE AUTO 1.01 K/uL (1.00-4.80); LYMPHOCYTES PERCENT AUTO 27.3 % (24.0-44.0); MEAN PLATELET VOLUME 8.9 fL (9.4-12.3); MONOCYTES ABSOLUTE AUTO 0.31 K/uL (0.00-0.80); MONOCYTES PERCENT AUTO 8.4 % (0.0-8.0); NEUTROPHILS ABSOLUTE AUTO 2.13 K/uL (1.80-7.70); NEUTROPHILS PERCENT AUTO 57.5 % (41.0-71.0); NRBC ABSOLUTE 0.00 K/uL (0.00-0.02); NRBC PERCENT 0.0 /100WBC (0.0-0.2); PLATELET COUNT,PLT 204 K/uL (150-400); RED BLOOD CELL COUNT 4.15 M/uL (4.10-5.30); WHITE BLOOD CELL COUNT,WBC 3.70 K/uL (3.9-11.3)
[2025-09-13 03:05] LABS: BASOPHILS ABSOLUTE AUTO 0.04 K/uL (0.00-0.20); BASOPHILS PERCENT AUTO 0.9 % (0.0-1.0); EOSINOPHILS ABSOLUTE AUTO 0.19 K/uL (0.00-0.45); EOSINOPHILS PERCENT AUTO 4.3 % (0.0-6.0); IMMATURE GRAN ABSOLUTE AUTO 0.00 K/uL (0.00-0.05); IMMATURE GRAN PERCENT AUTO 0.0 % (0.0-0.4); LYMPHOCYTES ABSOLUTE AUTO 0.80 K/uL (1.00-4.80); LYMPHOCYTES PERCENT AUTO 17.9 % (24.0-44.0); MEAN PLATELET VOLUME 8.8 fL (9.4-12.3); MONOCYTES ABSOLUTE AUTO 0.45 K/uL (0.00-0.80); MONOCYTES PERCENT AUTO 10.1 % (0.0-8.0); NEUTROPHILS ABSOLUTE AUTO 2.98 K/uL (1.80-7.70); NEUTROPHILS PERCENT AUTO 66.8 % (41.0-71.0); NRBC ABSOLUTE 0.00 K/uL (0.00-0.02); NRBC PERCENT 0.0 /100WBC (0.0-0.2); PLATELET COUNT,PLT 193 K/uL (150-400); RED BLOOD CELL COUNT 4.45 M/uL (4.10-5.30); WHITE BLOOD CELL COUNT,WBC 4.46 K/uL (3.9-11.3)
[2025-09-13 05:40] VITALS: BP 110/78; PULSE 68
== END 2025-09-13 05:40 | disposition home or self-care (01) ==
LOC: MW.ED 18:35
DX: K62.5 Hemorrhage of anus and rectum (principal); I16.0 Hypertensive urgency; N85.8 Other specified noninflammatory disorders of uterus; R91.1 Solitary pulmonary nodule; I10 Essential (primary) hypertension; J44.89 Other specified chronic obstructive pulmonary disease; Z91.041 Radiographic dye allergy status; Z79.899 Other long term (current) drug therapy; Z79.02 Long term (current) use of antithrombotics/antiplatelets; Z79.01 Long term (current) use of anticoagulants
CPT/HCPCS: 36415; 71046; 74174; 80053; 83735; 83880; 84484; 85025; 85610; 85730; 86850; 86900; 86901; 93005; 96361; 96374; 96375; 99284; J0360; J1200; J7030; Q9967; 93010

== ENCOUNTER 2025-09-18 15:23 | Emergency (ER) | payer OTHER ==
[2025-09-18] MEDS: hydrALAZINE 20 MG/ML SDV IVPUSH ONE (16:40)
[2025-09-18] MEDS ORDERED: Sodium Chloride 0.9% 2.5 ML Syringe FLUSH PRN (17:05)
[2025-09-18] MEDS ORDERED: Sodium Chloride 0.9% 10 ML Syringe FLUSH PRN (17:05)
[2025-09-18 17:09] LABS: APPEARANCE,URINE CLEAR; GLUCOSE,URINE NEGATIVE (NEGATIVE); OCCULT BLOOD,URINE NEGATIVE (NEGATIVE)
[2025-09-18 17:10] LABS: BASOPHILS ABSOLUTE AUTO 0.03 K/uL (0.00-0.20); BASOPHILS PERCENT AUTO 0.5 % (0.0-1.0); EOSINOPHILS ABSOLUTE AUTO 0.22 K/uL (0.00-0.45); EOSINOPHILS PERCENT AUTO 3.9 % (0.0-6.0); IMMATURE GRAN ABSOLUTE AUTO 0.02 K/uL (0.00-0.05); IMMATURE GRAN PERCENT AUTO 0.4 % (0.0-0.4); LYMPHOCYTES ABSOLUTE AUTO 0.84 K/uL (1.00-4.80); LYMPHOCYTES PERCENT AUTO 14.7 % (24.0-44.0); MEAN PLATELET VOLUME 9.0 fL (9.4-12.3); MONOCYTES ABSOLUTE AUTO 0.38 K/uL (0.00-0.80); MONOCYTES PERCENT AUTO 6.7 % (0.0-8.0); NEUTROPHILS ABSOLUTE AUTO 4.21 K/uL (1.80-7.70); NEUTROPHILS PERCENT AUTO 73.8 % (41.0-71.0); NRBC ABSOLUTE 0.00 K/uL (0.00-0.02); NRBC PERCENT 0.0 /100WBC (0.0-0.2); PLATELET COUNT,PLT 214 K/uL (150-400); RED BLOOD CELL COUNT 4.51 M/uL (4.10-5.30); WHITE BLOOD CELL COUNT,WBC 5.70 K/uL (3.9-11.3)
[2025-09-18 17:23] LABS: A/G RATIO 0.8 (0.9-1.6); ALANINE AMINOTRANSFERASE,ALT 29.0 IU/L (14-63); ASPARTATE AMNIOTRANSFERASE,AST 27.0 IU/L (15-37); BILIRUBIN TOTAL 0.3 mg/dL (0.2-1.0); BLOOD UREA NITROGEN,BUN 24.0 mg/dL (7.0-18.0); CARBON DIOXIDE,CO2 32.6 mmol/L (21.0-32.0); CHLORIDE,CL 101.0 mmol/L (98-107); CREATININE 0.9 mg/dL (0.6-1.0); EST CRCL DRUG DOSING (CG) 54.53 mL/min; GLUCOSE RANDOM 86.0 mg/dL (74-106); POTASSIUM,K 4.2 mmol/L (3.5-5.1); PROTEIN TOTAL,TP 8.3 g/dL (6.4-8.2); SODIUM,NA 138.0 mmol/L (136-145)
[2025-09-18 17:28] LABS: ESTIMATED GFR 71.0 mL/min (>60)
[2025-09-18 17:47] LABS: PCO2 VENOUS 56.0 mmHG (41-51); PH,VENOUS 7.4 (7.32-7.43); PO2 VENOUS 22.0 mmHG (35-45)
[2025-09-18 17:48] LABS: BASE EXCESS VENOUS 8.2 (-2.0-3.0); BICARBONATE,VENOUS 35.0 mEq/L (22-29)
[2025-09-18 19:18] VITALS: BP 117/63; PULSE 81
== END 2025-09-18 19:17 | disposition home or self-care (01) ==
LOC: MW.ED 15:23
DX: I10 Essential (primary) hypertension (principal); J44.89 Other specified chronic obstructive pulmonary disease; Z91.041 Radiographic dye allergy status; Z79.899 Other long term (current) drug therapy
CPT/HCPCS: 36415; 70450; 71046; 80053; 81003; 82803; 83735; 83880; 84484; 85025; 93005; 96361; 96374; 99284; J0360; J7040; 93010

== ENCOUNTER 2025-09-30 19:13 | Emergency (ER) | payer OTHER ==
[2025-09-30 21:53] LABS: BASOPHILS ABSOLUTE AUTO 0.04 K/uL (0.00-0.20); BASOPHILS PERCENT AUTO 0.8 % (0.0-1.0); EOSINOPHILS ABSOLUTE AUTO 0.17 K/uL (0.00-0.45); EOSINOPHILS PERCENT AUTO 3.4 % (0.0-6.0); IMMATURE GRAN ABSOLUTE AUTO 0.01 K/uL (0.00-0.05); IMMATURE GRAN PERCENT AUTO 0.2 % (0.0-0.4); LYMPHOCYTES ABSOLUTE AUTO 1.06 K/uL (1.00-4.80); LYMPHOCYTES PERCENT AUTO 21.5 % (24.0-44.0); MEAN PLATELET VOLUME 8.6 fL (9.4-12.3); MONOCYTES ABSOLUTE AUTO 0.39 K/uL (0.00-0.80); MONOCYTES PERCENT AUTO 7.9 % (0.0-8.0); NEUTROPHILS ABSOLUTE AUTO 3.26 K/uL (1.80-7.70); NEUTROPHILS PERCENT AUTO 66.2 % (41.0-71.0); NRBC ABSOLUTE 0.00 K/uL (0.00-0.02); NRBC PERCENT 0.0 /100WBC (0.0-0.2); PLATELET COUNT,PLT 215 K/uL (150-400); RED BLOOD CELL COUNT 4.38 M/uL (4.10-5.30); WHITE BLOOD CELL COUNT,WBC 4.93 K/uL (3.9-11.3)
[2025-09-30 22:16] VITALS: PULSE 72
[2025-09-30 22:31] LABS: A/G RATIO 0.8 (0.9-1.6); ALANINE AMINOTRANSFERASE,ALT 25.0 IU/L (14-63); ASPARTATE AMNIOTRANSFERASE,AST 24.0 IU/L (15-37); BILIRUBIN TOTAL 0.4 mg/dL (0.2-1.0); BLOOD UREA NITROGEN,BUN 25.0 mg/dL (7.0-18.0); CARBON DIOXIDE,CO2 32.3 mmol/L (21.0-32.0); CHLORIDE,CL 100.0 mmol/L (98-107); CREATININE 0.9 mg/dL (0.6-1.0); EST CRCL DRUG DOSING (CG) 54.53 mL/min; GLUCOSE RANDOM 87.0 mg/dL (74-106); POTASSIUM,K 3.9 mmol/L (3.5-5.1); PROTEIN TOTAL,TP 8.3 g/dL (6.4-8.2); SODIUM,NA 139.0 mmol/L (136-145)
[2025-09-30 22:38] LABS: ESTIMATED GFR 71.0 mL/min (>60)
[2025-10-01 00:06] VITALS: BP 158/96
== END 2025-10-01 00:05 | disposition home or self-care (01) ==
LOC: MW.ED 19:13
DX: I10 Essential (primary) hypertension (principal); I25.10 Atherosclerotic heart disease of native coronary artery without angina pectoris; E78.00 Pure hypercholesterolemia, unspecified; K21.9 Gastro-esophageal reflux disease without esophagitis; E03.9 Hypothyroidism, unspecified; J44.9 Chronic obstructive pulmonary disease, unspecified; Z86.73 Personal history of transient ischemic attack (TIA), and cerebral infarction without residual deficits; Z79.899 Other long term (current) drug therapy; Z79.02 Long term (current) use of antithrombotics/antiplatelets; Z91.041 Radiographic dye allergy status
CPT/HCPCS: 36415; 80053; 84484; 85025; 99283

== ENCOUNTER 2025-10-03 09:25 | Emergency (ER) | payer OTHER ==
[2025-10-03] MEDS ORDERED: Sodium Chloride 0.9% 10 ML Syringe FLUSH PRN (09:37)
[2025-10-03] MEDS ORDERED: Sodium Chloride 0.9% 2.5 ML Syringe FLUSH PRN (09:37)
[2025-10-03 09:59] LABS: BASOPHILS ABSOLUTE AUTO 0.03 K/uL (0.00-0.20); BASOPHILS PERCENT AUTO 0.6 % (0.0-1.0); EOSINOPHILS ABSOLUTE AUTO 0.17 K/uL (0.00-0.45); EOSINOPHILS PERCENT AUTO 3.1 % (0.0-6.0); IMMATURE GRAN ABSOLUTE AUTO 0.01 K/uL (0.00-0.05); IMMATURE GRAN PERCENT AUTO 0.2 % (0.0-0.4); LYMPHOCYTES ABSOLUTE AUTO 0.97 K/uL (1.00-4.80); LYMPHOCYTES PERCENT AUTO 17.9 % (24.0-44.0); MEAN PLATELET VOLUME 8.4 fL (9.4-12.3); MONOCYTES ABSOLUTE AUTO 0.37 K/uL (0.00-0.80); MONOCYTES PERCENT AUTO 6.8 % (0.0-8.0); NEUTROPHILS ABSOLUTE AUTO 3.87 K/uL (1.80-7.70); NEUTROPHILS PERCENT AUTO 71.4 % (41.0-71.0); NRBC ABSOLUTE 0.00 K/uL (0.00-0.02); NRBC PERCENT 0.0 /100WBC (0.0-0.2); PLATELET COUNT,PLT 215 K/uL (150-400); RED BLOOD CELL COUNT 4.73 M/uL (4.10-5.30); WHITE BLOOD CELL COUNT,WBC 5.42 K/uL (3.9-11.3)
[2025-10-03] MEDS: Labetalol 100 MG/20 ML MDV IVPUSH ONE (10:03)
[2025-10-03 10:34] LABS: A/G RATIO 0.8 (0.9-1.6); ALANINE AMINOTRANSFERASE,ALT 24.0 IU/L (14-63); ASPARTATE AMNIOTRANSFERASE,AST 24.0 IU/L (15-37); BILIRUBIN TOTAL 0.5 mg/dL (0.2-1.0); BLOOD UREA NITROGEN,BUN 27.0 mg/dL (7.0-18.0); CARBON DIOXIDE,CO2 31.8 mmol/L (21.0-32.0); CHLORIDE,CL 100.0 mmol/L (98-107); CREATININE 0.9 mg/dL (0.6-1.0); EST CRCL DRUG DOSING (CG) 54.53 mL/min; GLUCOSE RANDOM 89.0 mg/dL (74-106); POTASSIUM,K 3.8 mmol/L (3.5-5.1); PROTEIN TOTAL,TP 8.7 g/dL (6.4-8.2); SODIUM,NA 138.0 mmol/L (136-145)
[2025-10-03 10:38] LABS: ESTIMATED GFR 71.0 mL/min (>60)
[2025-10-03 11:08] VITALS: BP 126/77; PULSE 68
== END 2025-10-03 11:07 | disposition home or self-care (01) ==
LOC: MW.ED 09:25
DX: I10 Essential (primary) hypertension (principal); R20.2 Paresthesia of skin; I25.10 Atherosclerotic heart disease of native coronary artery without angina pectoris; E78.00 Pure hypercholesterolemia, unspecified; K21.9 Gastro-esophageal reflux disease without esophagitis; J44.9 Chronic obstructive pulmonary disease, unspecified; E03.9 Hypothyroidism, unspecified; Z86.73 Personal history of transient ischemic attack (TIA), and cerebral infarction without residual deficits; Z91.041 Radiographic dye allergy status; Z79.02 Long term (current) use of antithrombotics/antiplatelets; Z79.899 Other long term (current) drug therapy
CPT/HCPCS: 36415; 70450; 80053; 83735; 85025; 99284; A9270; J1920; 99283

== ENCOUNTER 2025-10-18 02:52 | Emergency (ER) | payer OTHER ==
[2025-10-18 03:11] LABS: BASOPHILS ABSOLUTE AUTO 0.05 K/uL (0.00-0.20); BASOPHILS PERCENT AUTO 0.6 % (0.0-1.0); EOSINOPHILS ABSOLUTE AUTO 0.30 K/uL (0.00-0.45); EOSINOPHILS PERCENT AUTO 3.3 % (0.0-6.0); IMMATURE GRAN ABSOLUTE AUTO 0.04 K/uL (0.00-0.05); IMMATURE GRAN PERCENT AUTO 0.4 % (0.0-0.4); LYMPHOCYTES ABSOLUTE AUTO 1.45 K/uL (1.00-4.80); LYMPHOCYTES PERCENT AUTO 16.2 % (24.0-44.0); MEAN PLATELET VOLUME 8.7 fL (9.4-12.3); MONOCYTES ABSOLUTE AUTO 0.62 K/uL (0.00-0.80); MONOCYTES PERCENT AUTO 6.9 % (0.0-8.0); NEUTROPHILS ABSOLUTE AUTO 6.51 K/uL (1.80-7.70); NEUTROPHILS PERCENT AUTO 72.6 % (41.0-71.0); NRBC ABSOLUTE 0.00 K/uL (0.00-0.02); NRBC PERCENT 0.0 /100WBC (0.0-0.2); PLATELET COUNT,PLT 214 K/uL (150-400); RED BLOOD CELL COUNT 4.36 M/uL (4.10-5.30); WHITE BLOOD CELL COUNT,WBC 8.97 K/uL (3.9-11.3)
[2025-10-18] MEDS: Nitroglycerin 0.4 MG Tab.SL SL ONE (03:14)
[2025-10-18] MEDS: Sodium Chloride 0.9% 2.5 ML Syringe FLUSH PRN (03:18)
[2025-10-18] MEDS: Sodium Chloride 0.9% 10 ML Syringe FLUSH PRN (03:18)
[2025-10-18 03:36] LABS: BLOOD UREA NITROGEN,BUN 42 mg/dL (7.0-18.0); CARBON DIOXIDE,CO2 30.9 mmol/L (21.0-32.0); CHLORIDE,CL 104 mmol/L (98-107); CREATININE 1.0 mg/dL (0.6-1.0); GLUCOSE RANDOM 100 mg/dL (74-106); POTASSIUM,K 3.9 mmol/L (3.5-5.1); SODIUM,NA 141 mmol/L (136-145)
[2025-10-18 03:39] LABS: ESTIMATED GFR 63 mL/min (>60)
[2025-10-18 07:09] VITALS: BP 122/75; PULSE 52
== END 2025-10-18 07:19 | disposition home or self-care (01) ==
LOC: MW.ED 02:52
DX: R07.2 Precordial pain (principal); I10 Essential (primary) hypertension; E78.00 Pure hypercholesterolemia, unspecified; E03.9 Hypothyroidism, unspecified; Z91.041 Radiographic dye allergy status; Z79.899 Other long term (current) drug therapy; Z79.01 Long term (current) use of anticoagulants; Z79.890 Hormone replacement therapy; Z95.828 Presence of other vascular implants and grafts
CPT/HCPCS: 36415; 71045; 80048; 84484; 85025; 93005; 99285; A9270

== ENCOUNTER 2025-11-02 19:24 | Emergency (ER) | payer OTHER ==
[2025-11-02 19:54] LABS: BASOPHILS ABSOLUTE AUTO 0.04 K/uL (0.00-0.20); BASOPHILS PERCENT AUTO 0.7 % (0.0-1.0); EOSINOPHILS ABSOLUTE AUTO 0.24 K/uL (0.00-0.45); EOSINOPHILS PERCENT AUTO 4.2 % (0.0-6.0); IMMATURE GRAN ABSOLUTE AUTO 0.01 K/uL (0.00-0.05); IMMATURE GRAN PERCENT AUTO 0.2 % (0.0-0.4); LYMPHOCYTES ABSOLUTE AUTO 0.99 K/uL (1.00-4.80); LYMPHOCYTES PERCENT AUTO 17.2 % (24.0-44.0); MEAN PLATELET VOLUME 8.5 fL (9.4-12.3); MONOCYTES ABSOLUTE AUTO 0.42 K/uL (0.00-0.80); MONOCYTES PERCENT AUTO 7.3 % (0.0-8.0); NEUTROPHILS ABSOLUTE AUTO 4.07 K/uL (1.80-7.70); NEUTROPHILS PERCENT AUTO 70.4 % (41.0-71.0); NRBC ABSOLUTE 0.00 K/uL (0.00-0.02); NRBC PERCENT 0.0 /100WBC (0.0-0.2); PLATELET COUNT,PLT 204 K/uL (150-400); RED BLOOD CELL COUNT 4.32 M/uL (4.10-5.30); WHITE BLOOD CELL COUNT,WBC 5.77 K/uL (3.9-11.3)
[2025-11-02 20:25] LABS: A/G RATIO 0.9 (0.9-1.6); ALANINE AMINOTRANSFERASE,ALT 24 IU/L (14-63); ASPARTATE AMNIOTRANSFERASE,AST 23 IU/L (15-37); BILIRUBIN TOTAL 0.4 mg/dL (0.2-1.0); BLOOD UREA NITROGEN,BUN 19 mg/dL (7.0-18.0); CARBON DIOXIDE,CO2 32.7 mmol/L (21.0-32.0); CHLORIDE,CL 99 mmol/L (98-107); CREATININE 1.0 mg/dL (0.6-1.0); GLUCOSE RANDOM 108 mg/dL (74-106); POTASSIUM,K 3.6 mmol/L (3.5-5.1); PROTEIN TOTAL,TP 8.1 g/dL (6.4-8.2); SODIUM,NA 137 mmol/L (136-145); TSH ULTRASENSITIVE 3.01 uIU/mL (0.36-3.74)
[2025-11-02 20:41] LABS: ESTIMATED GFR 63 mL/min (>60)
[2025-11-02] MEDS ORDERED: Sodium Chloride 0.9% 2.5 ML Syringe FLUSH PRN (20:58)
[2025-11-02] MEDS ORDERED: Sodium Chloride 0.9% 10 ML Syringe FLUSH PRN (20:58)
[2025-11-02] MEDS: diphenhydrAMINE 50 MG/ML SDV IVPUSH ONE (21:37)
[2025-11-02] MEDS: methylPREDNISolone Sodium Succinate 125 MG/2 ML SDV IVPUSH ONE (21:42)
[2025-11-02] MEDS: Iopamidol 755 MG/ML 500 ML Multipack Bottle IVPUSH ONE (22:47)
[2025-11-03 00:42] VITALS: BP 127/87; PULSE 64
== END 2025-11-03 00:40 | disposition home or self-care (01) ==
LOC: MW.ED 19:24
DX: I16.0 Hypertensive urgency (principal); M54.2 Cervicalgia; I25.10 Atherosclerotic heart disease of native coronary artery without angina pectoris; I10 Essential (primary) hypertension; E78.00 Pure hypercholesterolemia, unspecified; J44.9 Chronic obstructive pulmonary disease, unspecified; E03.9 Hypothyroidism, unspecified; Z86.73 Personal history of transient ischemic attack (TIA), and cerebral infarction without residual deficits; Z79.899 Other long term (current) drug therapy; Z79.890 Hormone replacement therapy; Z79.02 Long term (current) use of antithrombotics/antiplatelets; Z91.041 Radiographic dye allergy status
CPT/HCPCS: 36415; 70450; 70496; 70498; 80053; 83735; 84443; 84484; 85025; 93005; 96374; 96375; 99284; A9270; J1200; J2919; J7030; Q9967; 93010